=== PATIENT | female | born 1980 | race Caucasian/White ===

== ENCOUNTER 2017-01-04 10:32 | Emergency (ER) | payer BC ==
[2017-01-04] MEDS ORDERED: diPHENhydraMINE IV* 50 MG/ML 1 ml VIAL (BENADRYL) IV ONE (10:46)
[2017-01-04] MEDS ORDERED: methylPREDNISolone 125 MG* 2 ML VIAL IV ONE (10:47)
[2017-01-04] MEDS ORDERED: Ranitidine INJ(*) 25 MG/ML 2 ML VIAL IVPB ONE (10:55)
[2017-01-04 11:18] LABS: Hematocrit 40 % (35-47); Hemoglobin 13.3 g/dl (12.0-16.0); Mean Corpuscular HGB Conc 33 g/dl (31-36); Mean Corpuscular Hemoglobin 26 pg (27-31); Mean Corpuscular Volume 79 fL (80-97); Mean Platelet Volume 9 um3 (7.4-10.4); Red Blood Count 5.05 10^6/ul (4.0-5.4); Red Cell Distribution Width 14 % (10.5-15); White Blood Count 7.1 10^3/ul (3.5-10.8)
[2017-01-04 11:33] LABS: Albumin 4.3 g/dL (3.2-5.2); BUN/Creatinine Ratio 15.1 (8-20); Calcium 9.5 mg/dL (8.6-10.3); EGFR African American 115.4 (>60); EGFR Non-African American 89.7 (>60); Globulin 3.2 g/dL (2-4); Potassium 3.6 mmol/L (3.5-5.0); Total Bilirubin 0.5 mg/dL (0.2-1.0); Total Protein 7.5 g/dL (6.4-8.9)
[2017-01-04] MEDS ORDERED: Famotidine IV* 10 MG/ML 2 ML (20 mg) IVPB ONE (12:00)
--- NOTE | 2017-01-04 12:15 | ED ---
Allergic Reaction/Systemic - HPI Summary HPI Summary: 36f presents with allergic reaction today. She bite into a cinnamon donut and states that she felt nauseous and light headed. She admits to flush face. She also develop a tickle in her throat. She denies any difficulty swallowing, chest pain, or SOB. She has never had this reaction before. Her child have severe allergies and they see an clinical allergist. She states she doesn't believe anything was in the donut that she has not had before but she states she hasn't had nuts in a long time. She took a dose of Benadryl before she arrived. - History of Current Complaint Chief Complaint: EDAllergicReaction Time Seen by Provider: 01/04/17 10:46 Pain Intensity: 0 - Allergies/Home Medications Allergies/Adverse Reactions: Allergies Allergy/AdvReac Type Severity Reaction Status Date / Time No Known Allergies Allergy Verified 01/04/17 10:41 PMH/Surg Hx/FS Hx/Imm Hx Endocrine/Hematology History: Denies: Hx Anticoagulant Therapy Cardiovascular History: Denies: Hx Hypertension Musculoskeletal History: Denies: Hx Rheumatoid Arthritis - some issues, auto immune problems Infectious Disease History: No Infectious Disease History: Denies: Traveled Outside the [place] in Last 30 Days - Family History Known Family History: Positive: Other - allergies - Social History Alcohol Use: None Substance Use Type: Reports: None Smoking Status (MU): Never Smoked Tobacco Review of Systems Negative: Fever Positive: Sore Throat Negative: Chest Pain Negative: Shortness Of Breath Positive: Rash - facial flush All Other Systems Reviewed And Are Negative: Yes Physical Exam Triage Information Reviewed: Yes Vital Signs On Initial Exam: Initial Vitals Temp Pulse Resp BP Pulse Ox 98.7 F 119 20 137/75 100 01/04/17 10:35 01/04/17 10:35 01/04/17 10:35 01/04/17 10:35 01/04/17 10:35 Vital Signs Reviewed: Yes Appearance: Positive: Well-Appearing Skin: Positive: Other - face is flushed Head/Face: Positive: Normal Head/Face Inspection Eyes: Positive: Normal, Conjunctiva Clear ENT: Positive: Normal ENT inspection, Pharynx normal, TMs normal Respiratory/Lung Sounds: Positive: Clear to Auscultation, Breath Sounds Present Cardiovascular: Positive: Normal, RRR Diagnostics - Vital Signs Vital Signs Temp Pulse Resp BP Pulse Ox 01/04/17 10:52 98.7 F 104 20 149/73 100 01/04/17 10:35 98.7 F 119 20 137/75 100 - Laboratory Lab Results: Lab Results 01/04/17 01/04/17 Range/Units 11:08 11:08 WBC 7.1 (3.5-10.8) 10^3/ul RBC 5.05 (4.0-5.4) 10^6/ul Hgb 13.3 (12.0-16.0) g/dl Hct 40 (35-47) % MCV 79 L (80-97) fL MCH 26 L (27-31) pg MCHC 33 (31-36) g/dl RDW 14 (10.5-15) % Plt Count 202 (150-450) 10^3/ul MPV 9 (7.4-10.4) um3 Neut % (Auto) 82.0 (38-83) % Lymph % (Auto) 12.2 L (25-47) % [place] % (Auto) 4.1 (1-9) % Eos % (Auto) 0.2 (0-6) % Baso % (Auto) 1.5 (0-2) % Absolute Neuts (auto) 5.8 (1.5-7.7) 10^3/ul Absolute Lymphs (auto) 0.9 L (1.0-4.8) 10^3/ul Absolute Monos (auto) 0.3 (0-0.8) 10^3/ul Absolute Eos (auto) 0 (0-0.6) 10^3/ul Absolute Basos (auto) 0.1 (0-0.2) 10^3/ul Absolute Nucleated RBC 0 10^3/ul Nucleated RBC % 0 Sodium 134 (133-145) mmol/L Potassium 3.6 (3.5-5.0) mmol/L Chloride 105 (101-111) mmol/L Carbon Dioxide 24 (22-32) mmol/L Anion Gap 5 (2-11) mmol/L BUN 11 (6-24) mg/dL Creatinine 0.73 (0.51-0.95) mg/dL Est GFR ( Amer) 115.4 (>60) Est GFR (Non-Af Amer) 89.7 (>60) BUN/Creatinine Ratio 15.1 (8-20) Glucose 116 H (70-100) mg/dL Calcium 9.5 (8.6-10.3) mg/dL Total Bilirubin 0.50 (0.2-1.0) mg/dL AST 19 (13-39) U/L ALT 21 (7-52) U/L Alkaline Phosphatase 48 (34-104) U/L Total Protein 7.5 (6.4-8.9) g/dL Albumin 4.3 (3.2-5.2) g/dL Globulin 3.2 (2-4) g/dL Albumin/Globulin Ratio 1.3 (1-3) Result Diagrams: 01/04/17 11:08 01/04/17 11:08 Lab Statement: Any lab studies that have been ordered have been reviewed, and results considered in the medical decision making process. Allergic Reaction Course/Dx - Course Course Of Treatment: 36F presents wtih potenital allergic raction today s/p eating part of a donut. she states symptoms seem to come and go with facial flushing, tickle in throat, and nausea. gave another dose of benadryl and prednisone and patient symptoms resolved. labs normal. patient understands and agrees with plan - Diagnoses Differential Diagnosis/HQI/PQRI: Positive: Anaphylaxis, Local Allergic Reaction , Urticaria Provider Diagnoses: Allergic reaction Discharge - Discharge Plan Condition: Good Disposition: HOME Prescriptions: predniSONE TAB* [Deltasone TAB*] 40 mg PO DAILY #8 tab Patient Education Materials: Food Allergy (ED) Referrals: Valentin Lisa MD [Primary Care Provider] - Additional Instructions: Take Benadryl every 6 hours for 2 days Take steroid once a day for 4 more days, starting tomorrow Return to ED if develop SOB, difficulty swallowing or any new or worsening symptoms
[2017-01-04 12:46] VITALS: BP 109/52
== END 2017-01-04 12:46 | disposition home or self-care (01) ==
LOC: ED 10:32
DX: T78.40XA Allergy, unspecified, initial encounter (principal); X58.XXXA Exposure to other specified factors, initial encounter; R11.0 Nausea; R42 Dizziness and giddiness; J02.9 Acute pharyngitis, unspecified; R21 Rash and other nonspecific skin eruption
CPT/HCPCS: 36415; 80053; 85025; 99283; J1200; J2930

== ENCOUNTER 2017-01-24 12:57 | Emergency (ER) | payer BC ==
[2017-01-24] MEDS ORDERED: hydrOXYzine HCL TAB* 50 MG PO ONE (13:02)
[2017-01-24] MEDS ORDERED: methylPREDNISolone 125 MG* 2 ML VIAL IV ONE (14:07)
[2017-01-24] MEDS ORDERED: Famotidine IV* 10 MG/ML 2 ML (20 mg) IV SLOW PU ONE (14:07)
[2017-01-24 16:21] VITALS: BP 109/62
--- NOTE | 2017-01-25 08:17 | ED ---
David Bhakta Benjamin, scribed for Donnie Barreto MD on 01/24/17 at 1605 . Allergic Reaction/Systemic - HPI Summary HPI Summary: 36yo female BIB EMS for an allergic reaction. Pt is allergic to peanuts and today, pt smelled peanuts at school. Pt reported N/V, chest tightness and throat tightening. Pt received epi pen by a school nurse and got prednisone, solumedrol, and benadyrl by EMT. - History of Current Complaint Chief Complaint: EDAllergicReaction Time Seen by Provider: 01/24/17 13:01 Hx Obtained From: Patient Onset/Duration: Sudden Onset, Resolved Timing: Constant Severity Initially: Mild Severity Currently: Mild Pain Intensity: 0 Aggravating Factor(s): Nothing Alleviating Factor(s): Antihistamines, Epinephrine Associated Signs And Symptoms: Positive: Throat Tightening - Allergies/Home Medications Allergies/Adverse Reactions: Allergies Allergy/AdvReac Type Severity Reaction Status Date / Time Peanut Oil Allergy Nausea And Verified 01/24/17 13:35 Vomiting Peanut-containing Drug Allergy Nausea And Verified 01/24/17 13:35 Products Vomiting PMH/Surg Hx/FS Hx/Imm Hx Endocrine/Hematology History: Denies: Hx Anticoagulant Therapy Cardiovascular History: Denies: Hx Hypertension Musculoskeletal History: Denies: Hx Rheumatoid Arthritis - some issues, auto immune problems Infectious Disease History: No Infectious Disease History: Denies: Traveled Outside the [place] in Last 30 Days - Family History Known Family History: Positive: Other - allergies - Social History Occupation: Employed Full-time Lives: With Family Alcohol Use: None Substance Use Type: Reports: None Smoking Status (MU): Never Smoked Tobacco Review of Systems Constitutional: Negative Eyes: Negative ENT: Other - throat tightening Positive: Other - chest tightness Respiratory: Negative Positive: Vomiting, Nausea Genitourinary: Negative Musculoskeletal: Negative Skin: Negative Neurological: Negative Positive: Anxious All Other Systems Reviewed And Are Negative: Yes Physical Exam Triage Information Reviewed: Yes Vital Signs On Initial Exam: Initial Vitals Temp Pulse Resp BP Pulse Ox 98.6 F 102 18 134/71 99 01/24/17 13:30 01/24/17 13:30 01/24/17 13:30 01/24/17 13:30 01/24/17 13:30 Vital Signs Reviewed: Yes Appearance: Positive: Well-Appearing, No Pain Distress, Well-Nourished Skin: Positive: Warm, Skin Color Reflects Adequate Perfusion, Dry Head/Face: Positive: Normal Head/Face Inspection Eyes: Positive: Normal ENT: Positive: Normal ENT inspection Neck: Positive: Supple, Nontender Respiratory/Lung Sounds: Positive: Clear to Auscultation, Breath Sounds Present Cardiovascular: Positive: RRR Abdomen Description: Positive: Nontender, Soft Bowel Sounds: Positive: Present Musculoskeletal: Positive: Normal Neurological: Positive: Normal Psychiatric: Positive: Anxious - [place] Coma Scale Coma Scale Total: 15 Diagnostics - Vital Signs Vital Signs Temp Pulse Resp BP Pulse Ox 01/24/17 14:31 101 16 114/58 97 01/24/17 13:30 98.6 F 102 18 134/71 99 - Laboratory Lab Statement: Any lab studies that have been ordered have been reviewed, and results considered in the medical decision making process. Re-Evaluation - Re-Evaluation First Eval Re-Evaluation Time: 16:04 Change: Improved Allergic Reaction Course/Dx - Course Course Of Treatment: Ms. Guadarrama had a significant reaction to the smell of peanuts while at work today. She has had similar reactions in the past. She did well here with meds and observation and remained stable although she was clearly quite anxious upon arrival. - Diagnoses Provider Diagnoses: Allergic reaction, Anxiety about health Discharge - Discharge Plan Condition: Stable Disposition: HOME Patient Education Materials: General Allergic Reaction (ED) Referrals: Valentin Lisa MD [Primary Care Provider] - The documentation as recorded by the David merritt Benjamin accurately reflects the service I personally performed and the decisions made by me, Donnie Barreto MD.
== END 2017-01-24 16:20 | disposition home or self-care (01) ==
LOC: ED 12:57
DX: T78.40XA Allergy, unspecified, initial encounter (principal); R11.2 Nausea with vomiting, unspecified; F41.9 Anxiety disorder, unspecified; X58.XXXA Exposure to other specified factors, initial encounter
CPT/HCPCS: 96374; 96375; 99282; A9270-GY; J2930

== ENCOUNTER 2018-01-26 10:08 | Emergency (ER) | payer BC ==
[2018-01-26 10:56] LABS: ABS Basophils 0.1 10^3/ul (0-0.2); ABS Eosinophils 0.1 10^3/ul (0-0.6); ABS Lymphocytes 1.1 10^3/ul (1.0-4.8); ABS Monocytes 0.4 10^3/ul (0-0.8); ABS Neutrophils 2.5 10^3/ul (1.5-7.7); ABS Nucleated RBC 0 10^3/ul; Eosinophil % 2.5 % (0-6); Hematocrit 40 % (35-47); Hemoglobin 13.3 g/dl (12.0-16.0); Lymphocyte % 26.7 % (25-47); Mean Corpuscular HGB Conc 33 g/dl (31-36); Mean Corpuscular Hemoglobin 27 pg (27-31); Mean Corpuscular Volume 81 fL (80-97); Mean Platelet Volume 9.1 um3 (7.4-10.4); Nucleated Red Blood Cells % 0.2; Platelet Count 182 10^3/ul (150-450); Red Blood Count 5.02 10^6/ul (4.0-5.4); Red Cell Distribution Width 15 % (10.5-15); White Blood Count 4.1 10^3/ul (3.5-10.8)
--- NOTE | 2018-01-26 10:57 | RAD ---
INDICATION: Chest pain. Cough. Cold symptoms. COMPARISON: November 10, 2010 CT TECHNIQUE: Dual energy PA and routine lateral views of the chest were obtained. REPORT: Clear lungs and pleural spaces. Negative for pneumothorax. The heart, pulmonary vasculature, and mediastinal contours are unremarkable. Unremarkable osseous structures and soft tissue contours. IMPRESSION: No evidence for pneumonia. Negative exam.
[2018-01-26 11:11] LABS: EGFR Non-African American 95.2 (>60)
--- NOTE | 2018-01-26 11:12 | ED ---
HPI Chest Pain - HPI Summary HPI Summary: Patient is a 37-year-old female presenting to the ED with left chest wall pain since last week. She states that chest pain began last week on Saturday after doing yard work. She states she felt it was musculoskeletal and took some ibuprofen with relief. She states however this last week she has been experiencing intermittent left chest wall pain which continues to improve with NSAIDs, the pain returns if she does not take any medication. Massage to the area also improves her symptoms. Symptoms are aggravated with lying flat and better with leaning forward. PMH includes dermatomyositis to which the patient takes 200 mg Paquenil. She is followed by a printed circuit designer, rubber worker, ENT Dr. Akins and opthomologist. She states she had a similar episode several years ago when first being diagnosed with dermatomyositis. She was diagnosed with costochondritis as well as pleurisy. She states this feels somewhat similar. She denies any shortness of breath with her symptoms. Denies any recent travel, leg pain or smoking history. Last OCP use 4 months ago. Denies any recent viral illness, denies any headache. - History of Current Complaint Chief Complaint: EDChestPainROMI Time Seen by Provider: 01/26/18 10:24 Hx Obtained From: Patient Onset/Duration: Started Weeks Ago - 8 days Timing: Intermittent, Lasting Hours Initial Severity: Moderate Current Severity: Moderate Pain Intensity: 3 Pain Scale Used: 0-10 Numeric Chest Pain Location: Discrete at: - left anterior chest wall Chest Pain Radiates: No Character: Burning, Dull/Aching, Pressure/Squeezing Aggravating Factor(s): Recumbent Position Alleviating Factor(s): Medication - NSAIDS, Upright Position Associated Signs and Symptoms: Positive: Chest Pain. Negative: Vision Changes, Anxiety, Recent Stress, Headaches, Shortness of Breath, Lightheadedness, Diaphoresis, Palpitations, Calf Pain/Swelling, Vomiting, Wheezing, Nasal Congestion, URI - Risk Factors Pulmonary Embolism Risk Factors: Negative TAD Risk Factors: Negative - Allergy/Home Medications Allergies/Adverse Reactions: Allergies Allergy/AdvReac Type Severity Reaction Status Date / Time peanut Allergy Nausea And Verified 01/26/18 10:09 Vomiting peanut oil Allergy Nausea And Verified 01/26/18 10:09 Vomiting Home Medications: Home Medications EPINEPHrine [Epipen] 0.3 mg INJ ONCE PRN 01/26/18 [History Confirmed 01/26/18] Hydroxychloroquine TAB* [Plaquenil TAB*] 200 mg PO BID 01/26/18 [History Confirmed 01/26/18] PMH/Surg Hx/FS Hx/Imm Hx Previously Healthy: Yes Endocrine/Hematology History: Denies: Hx Anticoagulant Therapy Cardiovascular History: Denies: Hx Hypertension Musculoskeletal History: Denies: Hx Rheumatoid Arthritis - some issues, auto immune problems - Immunization History Hx Pertussis Vaccination: No Immunizations Up to Date: Unable to Obtain/Confirm Infectious Disease History: No Infectious Disease History: Denies: Traveled Outside the [place] in Last 30 Days - Family History Known Family History: Positive: Other - allergies - Social History Occupation: Employed Full-time Lives: With Family Alcohol Use: None Hx Substance Use: No Substance Use Type: Reports: None Hx Tobacco Use: No Smoking Status (MU): Never Smoked Tobacco Review of Systems Constitutional: Negative Negative: Fever, Chills, Fatigue, Skin Diaphoresis Negative: Photophobia, Blurred Vision Negative: Sore Throat, Ear Ache, Nasal Discharge Positive: Chest Pain. Negative: Palpitations Negative: Shortness Of Breath, Cough Genitourinary: Negative Positive: no symptoms reported, see HPI Positive: Myalgia - pain is somewhat reproducible Skin: Negative Negative: Headache, Weakness Psychological: Normal All Other Systems Reviewed And Are Negative: Yes Physical Exam Triage Information Reviewed: Yes Vital Signs On Initial Exam: Initial Vitals Temp Pulse Resp BP Pulse Ox 98.7 F 93 19 141/84 100 01/26/18 10:11 01/26/18 10:11 01/26/18 10:11 01/26/18 10:11 01/26/18 10:11 Completion Of Physical Exam Limited Due To: Dementia Appearance: Positive: Well-Appearing, Well-Nourished Skin: Positive: Warm, Skin Color Reflects Adequate Perfusion Head/Face: Positive: Normal Head/Face Inspection Eyes: Positive: EOMI, GERI, Conjunctiva Clear Neck: Positive: Supple, Nontender, No Lymphadenopathy Respiratory/Lung Sounds: Positive: Clear to Auscultation, Breath Sounds Present Cardiovascular: Positive: RRR - no pericardial friction rub, Pulses are Symmetrical in both Upper and Lower Extremities. Negative: IRR, Murmur, Rub, Leg Edema Left, Leg Edema Right Musculoskeletal: Positive: Normal, Strength/ROM Intact Neurological: Positive: Sensory/Motor Intact, Alert, Oriented to Person Place, Time, Speech Normal Psychiatric: Positive: Normal, Affect/Mood Appropriate AVPU Assessment: Alert Diagnostics - Vital Signs Vital Signs Temp Pulse Resp BP Pulse Ox 01/26/18 10:23 94 20 99 01/26/18 10:22 91 16 140/80 100 01/26/18 10:11 98.7 F 93 19 141/84 100 - Laboratory Lab Results: Lab Results 01/26/18 01/26/18 01/26/18 Range/Units 10:45 10:45 10:45 WBC 4.1 (3.5-10.8) 10^3/ul RBC 5.02 (4.0-5.4) 10^6/ul Hgb 13.3 (12.0-16.0) g/dl Hct 40 (35-47) % MCV 81 (80-97) fL MCH 27 (27-31) pg MCHC 33 (31-36) g/dl RDW 15 (10.5-15) % Plt Count 182 (150-450) 10^3/ul MPV 9.1 (7.4-10.4) um3 Neut % (Auto) 59.9 (38-83) % Lymph % (Auto) 26.7 (25-47) % [place] % (Auto) 9.6 H (0-7) % Eos % (Auto) 2.5 (0-6) % Baso % (Auto) 1.3 (0-2) % Absolute Neuts (auto) 2.5 (1.5-7.7) 10^3/ul Absolute Lymphs (auto) 1.1 (1.0-4.8) 10^3/ul Absolute Monos (auto) 0.4 (0-0.8) 10^3/ul Absolute Eos (auto) 0.1 (0-0.6) 10^3/ul Absolute Basos (auto) 0.1 (0-0.2) 10^3/ul Absolute Nucleated RBC 0 10^3/ul Nucleated RBC % 0.2 ESR Pending Sodium 137 L (139-145) mmol/L Potassium 3.7 (3.5-5.0) mmol/L Chloride 104 (101-111) mmol/L Carbon Dioxide 25 (22-32) mmol/L Anion Gap 8 (2-11) mmol/L BUN 11 (6-24) mg/dL Creatinine 0.69 (0.51-0.95) mg/dL Est GFR ( Amer) 122.5 (>60) Est GFR (Non-Af Amer) 95.2 (>60) BUN/Creatinine Ratio 15.9 (8-20) Glucose 100 (70-100) mg/dL Lactic Acid 0.9 (0.5-2.0) mmol/L Calcium 9.0 (8.6-10.3) mg/dL Total Bilirubin 0.60 (0.2-1.0) mg/dL AST 18 (13-39) U/L ALT 19 (7-52) U/L Alkaline Phosphatase 50 (34-104) U/L Troponin I Pending C-Reactive Protein 1.83 (< 5.00) mg/L Total Protein 6.8 (6.4-8.9) g/dL Albumin 4.2 (3.2-5.2) g/dL Globulin 2.6 (2-4) g/dL Albumin/Globulin Ratio 1.6 (1-3) Result Diagrams: 01/26/18 10:45 01/26/18 10:45 Lab Statement: Any lab studies that have been ordered have been reviewed, and results considered in the medical decision making process. Chest Pain Course/Dx - Course Course Of Treatment: During the course of treatment, the patient is evaluated for left chest wall pain. Troponin obtained. Labs are obtained and are unremarkable. Troponin 0.00. Negative inflammatory markers at CRP 1.83, ESR 7. Chest x-ray obtained and shows no acute cardiopulmonary findings. EKG normal sinus rhythm. These were reviewed by myself, Fide Torres, PAC. Lungs CTA, RRR with no pericardial friction rub. While inflammatory markers, EKG and chest x-ray are negative as well as patient is afebrile, patient continues to exhibit symptoms of a pericarditis with the position of leaning forward reducing pressure and alleviating pain. No radiation to the trapezius ridge. Pain is not worse with coughing or inspiration. PERC 's score 0 and patient is low risk for PE. I believe this to be inflammatory in nature with either costochondritis, pericarditis or pleurisy as symptoms improved with NSAIDs. All of which are maintained with similiar treatments of anti-inflammatories. I have also discussed this case with Dr. Barreto who agrees with these findings. Patient is okay to be discharged home at this time with ibuprofen 600mg 3 times daily until follow-up on Saturday with her printed circuit designer. She understands return precautions and will return for any worsening or changing symptoms or if she develops fever. - Chest Pain Differential Diagnosis/HQI/PQRI: Chest Wall - Diagnoses Provider Diagnoses: Inflammation, Chest pain Discharge - Sign-Out/Discharge Documenting (check all that apply): Discharge/Admit/Transfer - Discharge Plan Condition: Stable Disposition: HOME Patient Education Materials: Acute Pericarditis (ED) Referrals: Valentin Lisa MD [Primary Care Provider] - Additional Instructions: Given information on pericarditis - although you do not have this confirmed through EKG or chest xray Ibpurofen 600mg three times daily Follow up with your printed circuit designer as scheduled on saturday - Billing Disposition and Condition Condition: STABLE Disposition: HOME
[2018-01-26 12:22] VITALS: BP 115/69
== END 2018-01-26 12:23 | disposition home or self-care (01) ==
LOC: ED 10:08
DX: R07.9 Chest pain, unspecified (principal); J98.8 Other specified respiratory disorders
CPT/HCPCS: 36415; 71046; 80053; 82550; 82553; 83605; 84484; 85025; 85652; 86140; 93005; 99282

== ENCOUNTER 2019-06-27 11:38 | Emergency (ER) | payer BC ==
[2019-06-27] MEDS ORDERED: Ondansetron INJ* 2 MG/ML VIAL IV ONE (12:13)
[2019-06-27] MEDS ORDERED: Morphine 4 MG/ML VIAL (1 ml) 4 MG/ML VIAL IV ONE (12:13)
--- NOTE | 2019-06-27 12:19 | ED ---
Back Pain - HPI Summary HPI Summary: Patient presents with abrupt onset right back pain. This is wrapped around to her right lower quadrant and is tender to touch here. She cannot find any position to get comfortable in. Reports this started after having a bowel movement earlier today - denies straining. Denies numbness, tingling, weakness into leg however she does have a history of "sciatica" on this side. Typically presents as pain focal to the right SI region - today she felt burning in this area and beyond as mentioned above. Denies urinary or bowel retention/ incontinence, fever, chills, chest pain, urinary frequency or urgency, hematuria , dysuria, vaginal symptoms, history of ovarian cyst. She has had 4 children, all vaginal deliveries without complication. notes she had back labor with all of her children and this feels similar. 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 She takes Plaquenil daily and follows w/ Dr. Blackwood. No history of injury or herniated disc in this area. No recent trauma or injury. - History of Current Complaint Chief Complaint: EDFlankPain Stated Complaint: SEVERE ABDOMINAL PAIN PER PT Time Seen by Provider: 06/27/19 11:58 Hx Obtained From: Patient, Family/Council Member - Pain Intensity: 10 - Allergies/Home Medications Allergies/Adverse Reactions: Allergies Allergy/AdvReac Type Severity Reaction Status Date / Time peanut Allergy Nausea And Verified 06/27/19 11:43 Vomiting peanut oil Allergy Nausea And Verified 06/27/19 11:43 Vomiting PMH/Surg Hx/FS Hx/Imm Hx Previously Healthy: Yes Endocrine/Hematology History: Denies: Hx Anticoagulant Therapy, Hx Diabetes Cardiovascular History: Denies: Hx Hypertension, Hx Pacemaker/ICD GI History: Denies: Hx Cirrhosis, Hx Crohn's Disease, Hx Diverticulosis, Hx Gall Bladder Disease, Hx Gastroesophageal Reflux Disease, Hx Gastrointestinal Bleed, Hx Hiatal Hernia, Hx Irritable Bowel, Hx Obstructive Bowel, Hx Ulcer, Hx Urosepsis History: Denies: Hx Acute Renal Failure, Hx Chronic Renal Failure, Hx Kidney Infection , Hx Kidney Stones, Hx Renal Disease Musculoskeletal History: Reports: Other Musculoskeletal History - dermatomyositis, 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 Denies: Hx Rheumatoid Arthritis - some issues, auto immune problems Sensory History: Denies: Hx Hearing Aid Psychiatric History: Denies: Hx Panic Disorder, Hx Substance Abuse Infectious Disease History: No Infectious Disease History: Denies: Traveled Outside the [place] in Last 30 Days - Family History Known Family History: Positive: Other - allergies - Social History Lives: With Family - and children Alcohol Use: None Hx Substance Use: No Substance Use Type: Reports: None Hx Tobacco Use: No Smoking Status (MU): Never Smoked Tobacco Review of Systems Constitutional: Negative Cardiovascular: Negative Respiratory: Negative Positive: Abdominal Pain. Negative: Vomiting, Diarrhea, Nausea Positive: see HPI, flank pain. Negative: burning, dysuria, discharge, frequency , hematuria, incontinence, pain, urgency Musculoskeletal: Other - Rt lower back pain Negative: Decreased ROM, Edema Skin: Negative Neurological: Negative Psychological: Normal All Other Systems Reviewed And Are Negative: Yes Physical Exam Triage Information Reviewed: Yes Vital Signs On Initial Exam: Initial Vitals Temp Pulse Resp BP Pulse Ox 97.8 F 98 18 124/82 100 06/27/19 11:40 06/27/19 11:40 06/27/19 11:40 06/27/19 11:40 06/27/19 11:40 Vital Signs Reviewed: Yes Appearance: Positive: Well-Nourished, Pain Distress - pt lyin sideways on stretcher, shivering in pain Skin: Positive: Warm, Skin Color Reflects Adequate Perfusion, Dry Head/Face: Positive: Normal Head/Face Inspection Eyes: Positive: Normal, EOMI, GERI ENT: Positive: Hearing grossly normal, Pharynx normal - mucosa moist Respiratory/Lung Sounds: Positive: Clear to Auscultation, Breath Sounds Present. Negative: Rales, Rhonchi, Wheezes Cardiovascular: Positive: Normal, RRR, Pulses are Symmetrical in both Upper and Lower Extremities, S1, S2. Negative: Leg Edema Left, Leg Edema Right Abdomen Description: Positive: Soft Pelvic Exam: Positive: Other - deferred Musculoskeletal: Positive: Strength/ROM Intact Neurological: Positive: Normal, Sensory/Motor Intact, Alert, Oriented to Person Place, Time, CN Intact II-III Psychiatric: Positive: Normal - [address] Coma Scale Best Eye Response: 4 - Spontaneous Best Motor Response: 6 - Obeys Commands Best Verbal Response: 5 - Oriented Coma Scale Total: 15 Procedures - Sedation Patient Received Moderate/Deep Sedation with Procedure: No Diagnostics - Vital Signs Vital Signs Temp Pulse Resp BP Pulse Ox 06/27/19 11:40 97.8 F 98 18 124/82 100 - Laboratory Result Diagrams: 06/27/19 12:23 06/27/19 12:23 Lab Statement: Any lab studies that have been ordered have been reviewed, and results considered in the medical decision making process. Re-Evaluation - Re-Evaluation First Eval Change: Improved - s/p morphine Second Eval Change: Worse - s/p TVUS - ordered toradol which helped Back Pain Course/Dx - Course Course Of Treatment: Pt here w/ acute right sided back pain that wrapped around her hip and into her groin prior to arrival. She reports his pain as being significant such as labor pain. She eventually got herself comfortable even prior to pain medication while here however still had residual pain and morphine helped with that. Upon evaluation of CT, she was not found to have any displaced joints, disc protrusions or fractures however she was found to have a large dermoid ovarian cyst on the right side measuring 7.9 x 4.8 x 6.6 cm and free fluid in the adnexal space. No previous history of known ovarian cysts, fibroids, endometriosis and patient reports she's checked by [facility] every 2 years without abnormal findings. She is due for an updated well woman exam with Pap. No family history of known cancers or abnormality other than a sister with an ovarian cyst one time in her youth. Patient found even more relief with Toradol and was able to ambulate without difficulty. She'll be discharged with diagnosis of large right dermoid ovarian cyst and advised to follow-up with [facility] this week. She may take NSAIDs and additional pain medication for control. Review danger signs and symptoms of when to return to the emergency department. Patient and agree with plan. Note: Labs reviewed and are not significant for infection or gross muscle damage. She was also not found to be . Patient aware of results. - Diagnoses Provider Diagnoses: Dermoid cyst of right ovary Discharge ED - Sign-Out/Discharge Documenting (check all that apply): Patient Departure - Discharge Plan Condition: Stable Disposition: HOME Prescriptions: oxyCODONE/Acetamin 5/325 MG* [Percocet 5/325 TAB*] 1 tab PO Q6H PRN #15 tab MDD 4 PRN Reason: Pain - Severe Patient Education Materials: Ovarian Cyst (ED), Ruptured Ovarian Cyst (ED) Referrals: Heath Duong MD [Medical Doctor] - Additional Instructions: Apply warm castor oil compress to abdomen/pelvis, take Aleve 500 mg every 12 hours or ibuprofen 800 mg every 8 hours for pain and swelling, stay hydrated, pelvic rest until seen by [facility] this week. Call Saturday to schedule an appointment. Additionally, you've been given stronger pain medication in the event they need this. Take as directed. If in the meantime you develop intractable pain, fever, chills, hard belly, difficulty urinating or moving bowels, heavy vaginal discharge, numbness/ tingling/weakness of her lower extremities, return to the emergency department. - Billing Disposition and Condition Condition: STABLE Disposition: Home
[2019-06-27 12:31] LABS: ABS Basophils 0.1 10^3/ul (0-0.2); ABS Eosinophils 0.1 10^3/ul (0-0.6); ABS Monocytes 0.3 10^3/ul (0-0.8); ABS Neutrophils 2.4 10^3/ul (1.5-7.7); Eosinophil % 1.7 %; Hematocrit 41 % (35-47); Hemoglobin 13.7 g/dL (12.0-16.0); Mean Corpuscular HGB Conc 33 g/dL (31-36); Mean Corpuscular Hemoglobin 26 pg (27-31); Mean Corpuscular Volume 80 fL (80-97); Mean Platelet Volume 9.3 fL (7.4-10.4); Platelet Count 173 10^3/uL (150-450); Red Blood Count 5.17 10^6 /uL (3.70-4.87); Red Cell Distribution Width 14 % (10-15); White Blood Count 3.9 10^3/uL (3.5-10.8)
[2019-06-27 12:48] LABS: ALT 12 U/L (7-52); AST 16 U/L (13-39); Albumin 4.3 g/dL (3.2-5.2); Albumin/Globulin Ratio 1.5 (1-3); Alkaline Phosphatase 60 U/L (34-104); Anion Gap 7 mmol/L (2-11); BUN/Creatinine Ratio 14.5 (8-20); Blood Urea Nitrogen 10 mg/dL (6-24); C Reactive Protein 1.88 mg/L (<8.01); CO2 Carbon Dioxide 23 mmol/L (22-32); Calcium 9.3 mg/dL (8.6-10.3); Chloride 106 mmol/L (101-111); Creatine Kinase 188 U/L (10-223); EGFR African American 114.6 (>60); EGFR Non-African American 94.7 (>60); Globulin 2.8 g/dL (2-4); Glucose 125 mg/dL (70-100); Sodium 136 mmol/L (135-145); Total Protein 7.1 g/dL (6.4-8.9)
[2019-06-27 12:54] LABS: HCG Pregnancy < 0.60 mIU/mL
[2019-06-27 13:34] LABS: Erythrocyte Sed Rate 2 mm/Hr (0-19)
[2019-06-27] MEDS ORDERED: Ketorolac INJ* 30 MG/ML 1 ML VIAL IV ONE (14:24)
[2019-06-27 14:36] VITALS: BP 105/55
== END 2019-06-27 16:38 | disposition home or self-care (01) ==
LOC: ED 11:38
DX: D27.0 Benign neoplasm of right ovary (principal); D27.1 Benign neoplasm of left ovary; N20.0 Calculus of kidney; M54.5 Low back pain; Z32.02 Encounter for pregnancy test, result negative; M33.10 Other dermatomyositis, organ involvement unspecified; M94.0 Chondrocostal junction syndrome [Tietze]; Z91.010 Allergy to peanuts
CPT/HCPCS: 36415; 72131; 72192; 76830; 80053; 82550; 83605; 84702; 85025; 85652; 86140; 96374; 96375; 99282; J1885; J2270; J2405

== ENCOUNTER 2019-06-28 16:17 | Observation (INO) | payer BC ==
[2019-06-28] MEDS ORDERED: HYDROmorphone INJ1* 1 MG/ML SYRINGE ONE ×2 (17:23→17:30)
[2019-06-28] MEDS ORDERED: Ondansetron INJ* 2 MG/ML VIAL ONE ×2 (17:23→21:36)
[2019-06-28] MEDS ORDERED: Morphine 4 MG/ML VIAL (1 ml) 4 MG/ML VIAL IV ONE ×2 (17:25→19:53)
[2019-06-28] MEDS ORDERED: NS 0.9% 1000 ML** 1,000 ML IV ONE (17:25)
[2019-06-28] MEDS ORDERED: Ondansetron INJ* 2 MG/ML VIAL IV ONE (17:25)
[2019-06-28] MEDS ORDERED: HYDROmorphone INJ* 0.5 MG/0.5 ML SYRINGE IV ONE (17:28)
[2019-06-28] MEDS ORDERED: HYDROmorphone INJ1* 1 MG/ML SYRINGE IV ONE (17:28)
--- NOTE | 2019-06-28 17:32 | ED ---
Abdominal Pain/Female - HPI Summary HPI Summary: 38 year old F [place] [facility] [place] by boyfriend complains of acute onset severe RLQ pain rated 10/10 in severity since approximately 15:30 today. States she had abdominal pain yesterday, and was seen in the ED, dx bilateral dermoid ovarian cysts. States she took Motrin at approximately 14:30 today. States she was due for a dose of oxydocone at 15:00 today. States she had sudden onset severe 10/10 right sided pain around 15:30 and came to ER. No nausea/vomiting. No other sx. Symptoms aggravated by nothing. Symptoms alleviated by nothing. - History of Current Complaint Chief Complaint: EDAbdPain Stated Complaint: ABD PAIN Time Seen by Provider: 06/28/19 17:13 Hx Obtained From: Patient Onset/Duration: Sudden Onset, Lasting Hours, Still Present Timing: Constant Severity Currently: Severe Pain Intensity: 10 Pain Scale Used: 0-10 Numeric Location: Discrete At: RLQ Aggravating Factor(s): Nothing Alleviating Factor(s): Nothing Associated Signs and Symptoms: Positive: Negative Allergies/Adverse Reactions: Allergies Allergy/AdvReac Type Severity Reaction Status Date / Time peanut Allergy Nausea And Verified 06/27/19 11:43 Vomiting peanut oil Allergy Nausea And Verified 06/27/19 11:43 Vomiting PMH/Surg Hx/FS Hx/Imm Hx Endocrine/Hematology History: Denies: Hx Anticoagulant Therapy, Hx Diabetes Cardiovascular History: Denies: Hx Hypertension, Hx Pacemaker/ICD GI History: Denies: Hx Cirrhosis, Hx Crohn's Disease, Hx Diverticulosis, Hx Gall Bladder Disease, Hx Gastroesophageal Reflux Disease, Hx Gastrointestinal Bleed, Hx Hiatal Hernia, Hx Irritable Bowel, Hx Obstructive Bowel, Hx Ulcer, Hx Urosepsis History: Denies: Hx Acute Renal Failure, Hx Chronic Renal Failure, Hx Kidney Infection , Hx Kidney Stones, Hx Renal Disease Musculoskeletal History: Reports: Other Musculoskeletal History - dermatomyositis, 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 Denies: Hx Rheumatoid Arthritis - some issues, auto immune problems Sensory History: Denies: Hx Hearing Aid Psychiatric History: Denies: Hx Panic Disorder, Hx Substance Abuse Infectious Disease History: No Infectious Disease History: Denies: Traveled Outside the [place] in Last 30 Days - Family History Known Family History: Positive: Other - allergies - Social History Alcohol Use: None Hx Substance Use: No Substance Use Type: Reports: None Hx Tobacco Use: No Smoking Status (MU): Never Smoked Tobacco Review of Systems Negative: Fever Positive: Other - RLQ pain. Negative: Vomiting, Nausea All Other Systems Reviewed And Are Negative: Yes Physical Exam - Summary Physical Exam Summary: Constitutional: Well-developed, Well-nourished, Alert. In moderate distress secondary to pain Skin: Warm, Dry HENT: Normocephalic; Atraumatic Eyes: Conjunctiva normal Neck: Musculoskeletal ROM normal neck. (-) JVD, (-) Stridor, (-) Nuchal rigidity Cardio: Rhythm regular, rate normal, Heart sounds normal; Intact distal pulses; Radial pulses are 2+ and symmetric. (-) Murmur Pulmonary/Chest wall: Effort normal. (-) Respiratory distress, (-) Wheezes, (-) Rales Abd: Soft, (-) Distension, (-) Rebound, guarding with RLQ tenderness Musculoskeletal: (-) Edema Lymph: (-) Cervical adenopathy Neuro: Alert, Oriented x3 Psych: Mood and affect Normal Triage Information Reviewed: Yes Vital Signs On Initial Exam: Initial Vitals Temp Pulse Resp BP Pulse Ox 98.3 F 95 18 111/64 98 06/28/19 16:28 06/28/19 16:28 06/28/19 16:28 06/28/19 16:28 06/28/19 16:28 Vital Signs Reviewed: Yes Procedures - Sedation Patient Received Moderate/Deep Sedation with Procedure: No Diagnostics - Vital Signs Vital Signs Temp Pulse Resp BP Pulse Ox 06/28/19 16:28 98.3 F 95 18 111/64 98 - Laboratory Result Diagrams: 06/28/19 17:43 06/28/19 17:43 Lab Statement: Any lab studies that have been ordered have been reviewed, and results considered in the medical decision making process. - Ultrasound Transvaginal Ultrasound Interpretation Completed By: Radiologist Summary of Ultrasound Findings: 1. In the context of severe patient pain and diminutive right adnexal waveforms, there is concern for ovarian torsion versus torsion/detortion with the known dermoid cyst acting as a lead point. Surgical consultation is recommended. If required, more detailed imaging could be obtained after the patient's pain is controlled. These findings were discussed with Dr. Barreto at 5:13 PM on June 28, 2019. ED physician has reviewed this report. Re-Evaluation - Re-Evaluation First Eval Re-Evaluation Time: 17:15 Change: Unchanged Comment: Dr. Barreto reports he spoke with Dr. Gutierrez, radiology, who states patient has ovarian torsion Second Eval Re-Evaluation Time: 19:26 Change: Unchanged Comment: patient to OR for ovarian torsion Abdominal Pain Fem Course/Dx - Course Course Of Treatment: 38 y/o F w known dermoid cysts p/w severe RLQ pain. - concern for torsion, US ordered in waiting room. - Dr. Gutierrez called w concern for torsion, patient having severe RLQ pain on exam w guarding. Given dilaudid 1 mg for pain, zofran for nausea. - [facility] (Dr. Duong) consulted and will come see patient - Diagnoses Provider Diagnoses: Ovarian torsion - Provider Notifications Discussed Care Of Patient With: Heath Duogn Time Discussed With Above Provider: 17:31 Instructed by Provider To: Other - Dr. Duong, [employer], agrees to come see patient in ED. Discharge ED - Sign-Out/Discharge Documenting (check all that apply): Patient Departure - Admit - Discharge Plan Condition: Stable Disposition: ADMITTED TO [facility] - Billing Disposition and Condition Condition: STABLE Disposition: Admitted to [facility] - Attestation Statements Document Initiated by Namibe: Yes Documenting Scribe: Johnna Lugo Provider For Whom Chana is Documenting (Include Credential): Tyson Escobar MD Scribe Attestation: I, Johnna Lugo, scribed for Tyson Escobar MD on 06/28/19 at 2214. Scribe Documentation Reviewed: Yes Provider Attestation: The documentation as recorded by the scribe, Johnna Lugo accurately reflects the service I personally performed and the decisions made by me, Tyson Escobar MD Status of Scribe Document: Viewed
[2019-06-28 17:49] LABS: ABS Basophils 0.1 10^3/ul (0-0.2); ABS Lymphocytes 0.9 10^3/ul (1.0-4.8); ABS Monocytes 0.5 10^3/ul (0-0.8); Eosinophil % 0.6 %; Hematocrit 39 % (35-47); Hemoglobin 12.6 g/dL (12.0-16.0); Lymphocyte % 11.9 %; Mean Corpuscular HGB Conc 33 g/dL (31-36); Mean Corpuscular Hemoglobin 26 pg (27-31); Mean Corpuscular Volume 81 fL (80-97); Mean Platelet Volume 9.2 fL (7.4-10.4); Nucleated Red Blood Cells % 0.1; Platelet Count 173 10^3/uL (150-450); Red Blood Count 4.82 10^6 /uL (3.70-4.87); Red Cell Distribution Width 15 % (10-15); White Blood Count 7.5 10^3/uL (3.5-10.8)
[2019-06-28] MEDS ORDERED: HYDROmorphone INJ1* 1 MG/ML SYRINGE IV SLOW PU ONE (17:54)
[2019-06-28 18:07] LABS: Albumin/Globulin Ratio 1.5 (1-3); BUN/Creatinine Ratio 19.2 (8-20); Calcium 9.2 mg/dL (8.6-10.3); EGFR African American 107.4 (>60); EGFR Non-African American 88.8 (>60); Globulin 2.7 g/dL (2-4); Potassium 3.6 mmol/L (3.5-5.0); Total Bilirubin 0.7 mg/dL (0.2-1.0); Total Protein 6.7 g/dL (6.4-8.9)
[2019-06-28] MEDS ORDERED: HYDROmorphone INJ* 0.5 MG/0.5 ML SYRINGE IV SLOW PU ONE (18:18)
[2019-06-28] MEDS ORDERED: Bupivacaine 0.25% SDV PF* 10 ML VIAL INJ ONE (20:38)
[2019-06-28] MEDS ORDERED: fentaNYL* 50 MCG/ML 2 ML VIAL (100 MCG VIAL) ONE ×2 (20:41→21:27)
[2019-06-28] MEDS ORDERED: Midazolam* 1 MG/ML 5 ML VIAL (5 MG) ONE (20:41)
[2019-06-28] MEDS ORDERED: ceFOXitin 2 GM IVPREMIX* 2 GM/50 ML BAG ONE (20:44)
[2019-06-28] MEDS ORDERED: Rocuronium* 10 MG/ML VIAL ONE (21:26)
[2019-06-28] MEDS ORDERED: Lidocaine 2% PF * 5 ML VIAL ONE (21:36)
[2019-06-28] MEDS ORDERED: Dexamethasone IV* 4 MG/ML 1 ML (4 MG) ONE (21:36)
[2019-06-28] MEDS ORDERED: Propofol* 10 MG/ML 20 ML BTL ONE ×2 (21:36→22:47)
[2019-06-28] MEDS ORDERED: Succinylcholine* 20 MG/ML 10 ML VIAL ONE (21:36)
[2019-06-28] MEDS ORDERED: Ketorolac INJ* 30 MG/ML 1 ML VIAL ONE (21:36)
[2019-06-28] MEDS ORDERED: DiMENhydriNATE IV* 50 MG/ML VIAL ONE (21:36)
[2019-06-28] MEDS ORDERED: Acetaminophen IV 1GM/100ML * 1,000 MG/100 ML VIAL IVPB ONE (22:17)
[2019-06-28] MEDS ORDERED: Naloxone* 0.4 MG/ML 1 ML VIAL IV PRN (22:17)
[2019-06-28] MEDS ORDERED: HYDROmorphone INJ1* 1 MG/ML SYRINGE IV PRN (22:27)
[2019-06-28] MEDS ORDERED: DiMENhydriNATE IV* 50 MG/ML VIAL IV PUSH PRN (22:27)
[2019-06-28] MEDS ORDERED: oxyCODONE/Acetamin 5/325 MG* TAB PO PRN (23:27)
[2019-06-28] MEDS ORDERED: Ketorolac INJ* 30 MG/ML 1 ML VIAL IV PRN (23:27)
[2019-06-28] MEDS ORDERED: Acetaminophen IV 1GM/100ML * 100 ML ONE (23:37)
[2019-06-29] MEDS: Lactated Ringers 1000 ML Bag* 1,000 ML IV SCH ×2 (00:35→09:22)
[2019-06-29 06:49] LABS: ABS Lymphocytes 0.7 10^3/ul (1.0-4.8); ABS Monocytes 0.7 10^3/ul (0-0.8); ABS Neutrophils 12.1 10^3/ul (1.5-7.7); Hematocrit 38 % (35-47); Hemoglobin 12.3 g/dL (12.0-16.0); Lymphocyte % 5.3 %; Mean Corpuscular HGB Conc 33 g/dL (31-36); Mean Corpuscular Hemoglobin 26 pg (27-31); Mean Corpuscular Volume 81 fL (80-97); Mean Platelet Volume 10.1 fL (7.4-10.4); Platelet Count 165 10^3/uL (150-450); Red Blood Count 4.66 10^6 /uL (3.70-4.87); Red Cell Distribution Width 15 % (10-15); White Blood Count 13.5 10^3/uL (3.5-10.8)
[2019-06-29] MEDS ORDERED: oxyCODONE/Acetamin 5/325 MG* TAB PO PRN (07:50)
[2019-06-29] MEDS: oxyCODONE/Acetamin 5/325 MG* TAB PO PRN ×3 (08:03→21:38)
[2019-06-29] MEDS ORDERED: Influenza VAC *QUAD* 2019-20* 0.5 ML SYRINGE IM ONE (09:00)
[2019-06-29] MEDS: Ketorolac INJ* 30 MG/ML 1 ML VIAL IV PRN ×2 (11:59→17:57)
--- NOTE | 2019-06-29 19:16 | PN ---
Progress Note - Progress Note Date of Service: 06/29/19 SOAP: Subjective: Pt is POD#1 s/p minilap with bilat ovarian cystectomy just before midnight, presented with acute pain from torsion. Pt has progressed gradually today with increasing ambulation, but still requiring assistance getting to restroom. Atkinson removed, voiding. Tolerated regular diet. Pain well controlled with Toradol and percocet prn. Objective: Vital Signs Temp Pulse Resp BP Pulse Ox 98.6 F 79 18 102/55 100 06/29/19 15:27 06/29/19 15:27 06/29/19 16:00 06/29/19 15:27 06/29/19 15:27 Gen: NAD, appears comfortable in bed. Abd soft, mod TTP Incision: bandage removed, incision c/d/i with steristrips. Slight drainage present. Assessment: POD1, stable but with continued postop pain and needing assistance with ambulation. Plan: Considering pt does not feel safe going home yet (and it is already 1900), plan to keep pt until AM. Pt is confident she will be comfortable going home at that time since she is improving.
[2019-06-29] MEDS ORDERED: Docusate CAP* 100 MG PO PRN (19:24)
[2019-06-30] MEDS: Ketorolac INJ* 30 MG/ML 1 ML VIAL IV PRN (03:10)
[2019-06-30] MEDS: oxyCODONE/Acetamin 5/325 MG* TAB PO PRN (05:44)
[2019-06-30 08:40] VITALS: BP 119/58
--- NOTE | 2019-06-30 10:13 | SURGPN ---
Subjective - Introduction -: Mrs. Guadarrama is a 38 y/o lady. Admitted on: Admitted to [facility] for observation on 06/28/19 just prior to midnight. ] Patient's surgical date: 06/28/19 Procedure completed: Exploratory laparotomy, Reduction of right Ovarian torsion and Bilateral Ovarian cystectomy. S. Patient states her pain is well managed with PO meds and describes it as a 2 /10. She denies chest pain, shortness of breath, nausea or vomiting. Is tolerating a regular diet and passing flatus, voiding and ambulating without difficulty. O. Vital Signs Temp Pulse Resp BP Pulse Ox 97.5 F 81 16 119/58 100 06/30/19 08:39 06/30/19 08:39 06/30/19 08:39 06/30/19 08:39 06/30/19 08:39 Laboratory Last Values WBC 13.5 10^3/uL (3.5-10.8) H 06/29/19 06:11 RBC 4.66 10^6 /uL (3.70-4.87) 06/29/19 06:11 Hgb 12.3 g/dL (12.0-16.0) 06/29/19 06:11 Hct 38 % (35-47) 06/29/19 06:11 MCV 81 fL (80-97) 06/29/19 06:11 MCH 26 pg (27-31) L 06/29/19 06:11 MCHC 33 g/dL (31-36) 06/29/19 06:11 RDW 15 % (10-15) 06/29/19 06:11 Plt Count 165 10^3/uL (150-450) 06/29/19 06:11 MPV 10.1 fL (7.4-10.4) 06/29/19 06:11 Neut % (Auto) 89.5 % 06/29/19 06:11 Lymph % (Auto) 5.3 % 06/29/19 06:11 [place] % (Auto) 5.1 % 06/29/19 06:11 Eos % (Auto) 0.0 % 06/29/19 06:11 Baso % (Auto) 0.1 % 06/29/19 06:11 Absolute Neuts (auto) 12.1 10^3/ul (1.5-7.7) H 06/29/19 06:11 Absolute Lymphs (auto) 0.7 10^3/ul (1.0-4.8) L 06/29/19 06:11 Absolute Monos (auto) 0.7 10^3/ul (0-0.8) 06/29/19 06:11 Absolute Eos (auto) 0.0 10^3/ul (0-0.6) 06/29/19 06:11 Absolute Basos (auto) 0.0 10^3/ul (0-0.2) 06/29/19 06:11 Absolute Nucleated RBC 0.0 10^3/ul 06/29/19 06:11 Nucleated RBC % 0.0 06/29/19 06:11 Sodium 138 mmol/L (135-145) 06/28/19 17:43 Potassium 3.6 mmol/L (3.5-5.0) 06/28/19 17:43 Chloride 109 mmol/L (101-111) 06/28/19 17:43 Carbon Dioxide 22 mmol/L (22-32) 06/28/19 17:43 Anion Gap 7 mmol/L (2-11) 06/28/19 17:43 BUN 14 mg/dL (6-24) 06/28/19 17:43 Creatinine 0.73 mg/dL (0.51-0.95) 06/28/19 17:43 Est GFR ( Amer) 107.4 (>60) 06/28/19 17:43 Est GFR (Non-Af Amer) 88.8 (>60) 06/28/19 17:43 BUN/Creatinine Ratio 19.2 (8-20) 06/28/19 17:43 Glucose 115 mg/dL (70-100) H 06/28/19 17:43 Calcium 9.2 mg/dL (8.6-10.3) 06/28/19 17:43 Total Bilirubin 0.70 mg/dL (0.2-1.0) 06/28/19 17:43 AST 14 U/L (13-39) 06/28/19 17:43 ALT 11 U/L (7-52) 06/28/19 17:43 Alkaline Phosphatase 60 U/L (34-104) 06/28/19 17:43 Total Protein 6.7 g/dL (6.4-8.9) 06/28/19 17:43 Albumin 4.0 g/dL (3.2-5.2) 06/28/19 17:43 Globulin 2.7 g/dL (2-4) 06/28/19 17:43 Albumin/Globulin Ratio 1.5 (1-3) 06/28/19 17:43 Blood Type B Positive 06/28/19 17:43 Antibody Screen Negative 06/28/19 17:43 PE. Lungs CTA-- b/l, no CVA tenderness. CV--RRR, no abnormal heart sounds noted. Abdomen--Soft, not distended, Normal bowel sounds, appropriately tender. Incision clean/dry/intact with no erythema, discharge or induration. - Medications -: Active Medications Generic Name Dose Route Start Last Admin Trade Name Freq PRN Reason Stop Dose Admin Docusate Sodium 100 mg 06/29/19 19:24 06/29/19 21:35 Colace Cap* PO 100 mg BID PRN Administration CONSTIPATION Lactated Ringer's 1,000 mls @ 125 mls/hr 06/28/19 23:45 06/29/19 09:22 Lactated Ringers 1000 Ml Bag* IV 125 mls/hr PER RATE IRENE Administration Ketorolac Tromethamine 30 mg 06/29/19 07:50 06/30/19 03:10 Toradol Inj* IV 30 mg Q6H PRN Administration PAIN - MILD Oxycodone/Acetaminophen 1 tab 06/29/19 07:48 06/30/19 05:44 Percocet 5/325 Tab* PO 1 tab Q4H PRN Administration PAIN - MODERATE Oxycodone/Acetaminophen 2 tab 06/29/19 07:50 Percocet 5/325 Tab* PO Q4H PRN PAIN - SEVERE - Comments Comments: I/P Post day 2 stable Plan. Discharge home this am. follow up in 1 week at my office, Typed discharge instructions reviewed with patient. Objective - Intake and Output -: Intake & Output 06/28/19 06/29/19 06/30/19 07/01/19 06:59 06:59 06:59 06:59 Intake Total 2050 4104 Output Total 700 560 Balance 1350 3544 Weight 175 lb Intake: IV Fluids 2049 2604 LR 2000 1302 NS 50ML, Cefoxitin 2G 50 Oral 1500 Output: CHELSY #1 10 Urine 400 Atkinson 700 150 Other: Estimated Void Medium # Bowel Movements 0 # Voids 1 ADLs: Meal Record Start: 06/29/19 00: 44 Freq: Status: Active Protocol: Created 06/29/19 00:44 System (Rec: 06/29/19 00:44 System [id number]) Document 06/29/19 22:35 [id number] (Rec: 06/29/19 22:35 [id number]) Intake and Output Start: 06/28/19 16: 31 Freq: Status: Active Protocol: Created 06/28/19 16:31 System (Rec: 06/28/19 16:31 System [id number]) Intake and Output Start: 06/29/19 00: 44 Freq: DAILY@0600,1400,2200 Status: Active Protocol: Created 06/29/19 00:44 System (Rec: 06/29/19 00:44 System [id number]) Document 06/29/19 05:43 [id number] (Rec: 06/29/19 05:43 [id number] [facility]-M07) Document 06/29/19 07:22 [id number] (Rec: 06/29/19 07:22 [id number] [facility]-M07) Document 06/29/19 10:20 [id number] (Rec: 06/29/19 10:20 [id number] [facility]-C08) Document 06/29/19 14:05 [id number] (Rec: 06/29/19 14:06 [id number] [facility]-C03) Document 06/29/19 22:23 [id number] (Rec: 06/29/19 22:31 [id number] [facility]-M18) Document 06/29/19 22:36 [id number] (Rec: 06/29/19 22:36 [id number] [facility]-M18) Document 06/29/19 23:09 [id number] (Rec: 06/29/19 23:10 [id number] [facility]-M18) Document 06/30/19 05:10 [id number] (Rec: 06/30/19 05:32 [id number] [facility]-C05) Document 06/30/19 05:32 [id number] (Rec: 06/30/19 05:32 [id number] [facility]-M16)
--- NOTE | 2019-06-30 19:57 | OP ---
CC: Michelle Bolaños MD * DATE OF OPERATION: 06/28/19 - ROOM #333 DATE OF : 78 SURGEON: Heath Duong MD CROP DUSTER: Michelle Bolaños MD ANESTHESIA: General anesthetic with endotracheal intubation. PRE-OP DIAGNOSES: 1. Right ovarian torsion. 2. Bilateral ovarian cystic masses. POST-OP DIAGNOSES: 1. Right ovarian torsion. 2. Bilateral ovarian cystic masses, pending pathology. OPERATIVE PROCEDURE: Exploratory laparotomy with reduction of right ovarian torsion and bilateral ovarian cystectomy. ESTIMATED BLOOD LOSS: None. SPECIMENS SENT TO PATHOLOGY: Right and left ovarian cystic masses. FLUIDS: She received 2 L of IV crystalloid fluid. URINE OUTPUT: 300 cc of clear urine. FINDINGS: The patient was noted to have a torsed right ovary at its pedicle. She was also noted to have a large, 6 to 7 cm, right ovarian cystic mass consistent with a possible dermoid and a 4 cm left ovarian cystic mass, also consistent with dermoid, pending pathology. She also had a normal uterus, bladder, and bowel and there were no complications. DESCRIPTION OF PROCEDURE: The patient was taken to the operating room where she was identified. She was placed on the operating table in the supine position, prepped and draped in a normal sterile fashion. A mini laparotomy Pfannenstiel skin incision was made with a knife and carried through to underlying layer of fascia. The fascia was nicked in the midline and extended laterally with curved Burden scissors. It was then grasped superiorly and inferiorly with Zaira clamps and dissected off sharply from the rectus muscle. The rectus muscle was in the midline bluntly. The peritoneum was identified, grasped with pickups, entered sharply with Metzenbaum scissors and extended superiorly and inferiorly sharply. The patient was then placed in a Trendelenburg position. Moist sponges were used to pack the bowel away from the pelvis and a self-retaining retractor was then placed in the laparotomy incision. At this point, I was able to grasp the fallopian tube with a [place]. The right ovary was noted to be enlarged. I was able to deliver the right ovary through the incision and the ovarian torsion was then reduced. I then proceeded to perform an ovarian cystectomy of the right ovarian mass. This was done by sharp and blunt dissection and the cyst was removed intact and sent to Pathology. The defect on the ovary was closed using 3-0 Polysorb sutures in a baseball stitch fashion with good hemostasis noted. The right ovary was then reintroduced into the patient's abdomen. Attention was then brought on to the patient's left ovary where an ovarian cystectomy was performed in a similar fashion. The cyst in the left ovary was removed intact and also sent to Pathology and the ovarian defect was also closed using a baseball stitch technique with 3-0 Polysorb suture. I proceeded to irrigate the patient's abdomen. All the surgical pedicles were noted to be completely hemostatic. The fluid in the abdomen was suctioned. All the sponges were also removed from the patient's abdomen. The peritoneum was then closed using 3-0 Polysorb suture in a running fashion. The fascia was closed using 0 Polysorb suture in a running fashion and the skin was closed with 4-0 Monocryl subcuticular stitch. The patient tolerated the procedure well. Sponge, lap, and needle counts were correct x2. She was then transferred to the recovery room area in stable condition. [id number]/[facility] #: [id number] MASHA
== END 2019-06-30 11:20 | disposition home or self-care (01) ==
LOC: ED 16:17 → OR 18:32 → SSU 06-29 00:20
PROVIDERS: ADMIT Obstetrics & Gynecology; ATTEND Obstetrics & Gynecology
DX: D27.0 Benign neoplasm of right ovary (principal); D27.1 Benign neoplasm of left ovary; R10.31 Right lower quadrant pain; R11.2 Nausea with vomiting, unspecified; N83.511 Torsion of right ovary and ovarian pedicle; D27.9 Benign neoplasm of unspecified ovary; Z23 Encounter for immunization
CPT/HCPCS: 36415; 76830; 80053; 85025; 86850; 86900; 86901; 88305; 90471; 90686; 96361; 96374; 96375; 96376; 99283; A9270-GY; G0008; G0378; J0330; J0694; J1100; J1170; J1240; J1885; J2250; J2270; J2405; J2704; J3010; J3490

== ENCOUNTER 2019-09-01 08:42 | Emergency (ER) | payer BC ==
[2019-09-01] MEDS ORDERED: Ondansetron INJ* 2 MG/ML VIAL IV ONE (09:16)
[2019-09-01] MEDS ORDERED: NS 0.9% 1000 ML** 1,000 ML IV ONE (09:16)
[2019-09-01] MEDS ORDERED: Morphine 4 MG/ML VIAL (1 ml) 4 MG/ML VIAL IV ONE (09:16)
--- NOTE | 2019-09-01 09:16 | ED ---
Abdominal Pain/Female - HPI Summary HPI Summary: 38-year-old female with significant past medical history of dermatomyositis currently taking hydroxychloroquine presents to the emergency department today complaining of right-sided abdominal pain which began this morning. In July patient had ovarian torsion due to a large cyst which was removed by Dr. Duong. 4 days ago patient had an ultrasound done which showed evidence of a large unknown etiology mass on her right ovary and she has a scheduled operation for tomorrow 09/02/2019 for removal of her right ovary and fallopian tube. Patient presents to the emergency department today with sudden onset right lower quadrant pain associated nausea. LMP 1 week ago and regular. Patient denies recent recreational drug use or alcohol use. Patient has not taken anything for pain prior to arrival. Family history and social history noncontributory. Patient denies fever, chest pain, shortness of breath, pain with urination, vaginal bleeding, vaginal discharge, rash. - History of Current Complaint Chief Complaint: EDAbdPain Stated Complaint: LOWER ABD PRESSURE Time Seen by Provider: 09/01/19 08:53 Hx Obtained From: Patient Onset/Duration: Sudden Onset Timing: Constant Severity Initially: Severe Severity Currently: Severe Pain Intensity: 0 - 8 Pain Scale Used: 0-10 Numeric Location: Discrete At: RUQ, Discrete At: RLQ Radiates: Yes Radiates to: Back Character: Cramping Aggravating Factor(s): Other: - sitting upright Alleviating Factor(s): Position - supine Associated Signs and Symptoms: Positive: Nausea. Negative: Cough, Blood in Stool, Vaginal Bleeding, Vaginal Discharge, Vomiting - Risk Factors Ovarian Torsion Risk Factor: Reproductive Age, Ovarian Cysts/Tumors Allergies/Adverse Reactions: Allergies Allergy/AdvReac Type Severity Reaction Status Date / Time Tree Nuts Allergy Severe Anaphylatic Verified 08/31/19 17:42 Shock peanut Allergy Nausea And Verified 06/27/19 11:43 Vomiting peanut oil Allergy Nausea And Verified 06/27/19 11:43 Vomiting Seasonal Allergies Allergy Sneezing Uncoded 08/31/19 17:42 PMH/Surg Hx/FS Hx/Imm Hx Endocrine/Hematology History: Denies: Hx Anticoagulant Therapy, Hx Diabetes Cardiovascular History: Denies: Hx Hypertension, Hx Pacemaker/ICD GI History: Denies: Hx Cirrhosis, Hx Crohn's Disease, Hx Diverticulosis, Hx Gall Bladder Disease, Hx Gastroesophageal Reflux Disease, Hx Gastrointestinal Bleed, Hx Hiatal Hernia, Hx Irritable Bowel, Hx Obstructive Bowel, Hx Ulcer, Hx Urosepsis History: Denies: Hx Acute Renal Failure, Hx Chronic Renal Failure, Hx Kidney Infection , Hx Kidney Stones, Hx Renal Disease Musculoskeletal History: Reports: Other Musculoskeletal History - Deratomyositis , 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, degenerative bone diseases Denies: Hx Rheumatoid Arthritis - some issues, auto immune problems Sensory History: Reports: Hx Contacts or Glasses Denies: Hx Hearing Aid Opthamlomology History: Reports: Hx Contacts or Glasses Psychiatric History: Denies: Hx Panic Disorder, Hx Substance Abuse Infectious Disease History: No Infectious Disease History: Denies: Traveled Outside the [place] in Last 30 Days - Family History Known Family History: Positive: Other - allergies - Social History Alcohol Use: None Hx Substance Use: No Substance Use Type: Reports: None Hx Tobacco Use: No Smoking Status (MU): Never Smoked Tobacco Review of Systems Constitutional: Negative Eyes: Negative ENT: Negative Cardiovascular: Negative Respiratory: Negative Positive: Abdominal Pain, Nausea. Negative: Vomiting, Diarrhea Genitourinary: Negative Musculoskeletal: Negative Skin: Negative Neurological: Negative Psychological: Normal All Other Systems Reviewed And Are Negative: Yes Physical Exam - Summary Physical Exam Summary: Inspection reveals no masses or ecchymosis. Auscultation reveals normoactive bowel sounds. Palpation reveals tenderness of the right upper and lower quadrant. Positive Rovsing, obturator, psoas, McBurney sign. Triage Information Reviewed: Yes Vital Signs On Initial Exam: Initial Vitals Temp Pulse Resp BP Pulse Ox 98.6 F 90 18 143/83 100 09/01/19 08:47 09/01/19 08:47 09/01/19 08:47 09/01/19 08:47 09/01/19 08:47 Vital Signs Reviewed: Yes Appearance: Positive: Well-Appearing, Well-Nourished, Pain Distress Skin: Positive: Warm, Skin Color Reflects Adequate Perfusion Eyes: Positive: EOMI, GERI ENT: Positive: Hearing grossly normal Respiratory/Lung Sounds: Positive: Clear to Auscultation, Breath Sounds Present Cardiovascular: Positive: RRR, S1, S2 Abdomen Description: Positive: Soft, McBurney's Point Tenderness. Negative: Distended, Guarding Bowel Sounds: Positive: Present Musculoskeletal: Positive: Strength/ROM Intact Neurological: Positive: Sensory/Motor Intact, Alert, Oriented to Person Place, Time, Normal Gait, Speech Normal Psychiatric: Positive: Affect/Mood Appropriate, Anxious AVPU Assessment: Alert Procedures - Sedation Patient Received Moderate/Deep Sedation with Procedure: No Diagnostics - Vital Signs Vital Signs Temp Pulse Resp BP Pulse Ox 09/01/19 08:47 98.6 F 90 18 143/83 100 - Laboratory Result Diagrams: 09/01/19 09:58 09/01/19 09:58 Lab Statement: Any lab studies that have been ordered have been reviewed, and results considered in the medical decision making process. Abdominal Pain Fem Course/Dx - Course Course Of Treatment: Patient was evaluated in the emergency department today for abdominal pain. Patient's skin exam vitals are stable and she is afebrile. Laboratory studies are ordered as well as a transvaginal ultrasound to about a possible torsion, ectopic , appendicitis. Laboratory studies show no leukocytosis or anemia. There are no significant electrolyte abnormalities. Lactic acid level is mildly elevated at 2.1 and the patient was given 1 L of normal saline for correction. Urinalysis negative. Transvaginal ultrasound found: 1. NO SONOGRAPHIC FEATURES OF TORSION. PLEASE NOTE THAT PARTIAL OR INTERMITTENT TORSION MAY BE SONOGRAPHICALLY NORMAL. 2. THERE IS A TUBULAR HYPOECHOIC STRUCTURE ALONG THE RIGHT ADNEXA WITH CENTRAL ECHOGENICITY. THIS MAY REPRESENT AN EDEMATOUS FALLOPIAN TUBE WITH COMPLEX FLUID CENTRALLY. THE DIFFERENTIAL INCLUDES PYOSALPINX. 3. THERE IS AN ECHOGENIC CYSTIC LESION OF THE RIGHT OVARY MEASURING UP TO 2.7 CM. THE DIFFERENTIAL INCLUDES HEMORRHAGIC CYST. Professional Nurse Dr. Draper was consulted and suggested sending the patient home on oral pain medication and having her follow up with Dr. Duong tomorrow for her planned surgery as there was no pathology requiring immediate or emergent surgery at this time. Patient agrees with this plan. - Diagnoses Differential Diagnosis: Positive: Appendicitis, Ectopic , Gall Bladder Disease, Ovarian Cyst, Urinary Tract Infection, Other - Ovarian torsion Provider Diagnoses: Abdominal pain, Ovarian cyst - Provider Notifications Discussed Care Of Patient With: Mirian Draper - felt the patient had no pathology requiring immediate intervention and ultimately the patient needs surgical intervention which she has scheduled for tomorrow. The surgery would be non-emergent so she may be discharged home with oral pain medications with follow-up with Dr. Duong tomorrow for surgery. Time Discussed With Above Provider: 10:36 Discharge ED - Sign-Out/Discharge Documenting (check all that apply): Patient Departure - Discharge Plan Condition: Stable Disposition: HOME Prescriptions: Ondansetron ODT TAB* [Zofran 4 MG Odt TAB*] 4 mg PO Q6H PRN #12 tab.odt PRN Reason: Nausea oxyCODONE/Acetamin 5/325 MG* [Percocet 5/325 TAB*] 1 tab PO Q4H PRN #6 tab MDD 6 PRN Reason: Pain - Severe Patient Education Materials: Ovarian Cyst (ED) Referrals: Eric Pope MD [Primary Care Provider] - Heath Duong MD [Medical Doctor] - 1 Day Additional Instructions: You were seen in the emergency department today due to abdominal pain. There is no evidence of infectious pathology however ultrasound revealed that there may be evidence of intermittent ovarian torsion, and possibly hemorrhagic ovarian cyst. I spoke with the planning aide title one kindergarten teacher who felt you did not require surgery at this time and the best plan of action would be to follow-up with Dr. Duong for your planned surgery tomorrow. I will be giving you 1 day worth of pain medication in order for you to be comfortable while you wait for your surgery tomorrow. Please return to the emergency department immediately if you develop any new or worsening symptoms. - Billing Disposition and Condition Condition: STABLE Disposition: Home
[2019-09-01 10:09] LABS: ABS Monocytes 0.3 10^3/ul (0-0.8); ABS Neutrophils 4.8 10^3/ul (1.5-7.7); Eosinophil % 0.5 %; Hematocrit 42 % (35-47); Lymphocyte % 15.9 %; Mean Corpuscular HGB Conc 33 g/dL (31-36); Mean Corpuscular Hemoglobin 27 pg (27-31); Mean Corpuscular Volume 81 fL (80-97); Platelet Count 230 10^3/uL (150-450); Red Blood Count 5.21 10^6 /uL (3.70-4.87); Red Cell Distribution Width 15 % (10-15); White Blood Count 6.1 10^3/uL (3.5-10.8)
[2019-09-01 10:17] LABS: INR 1.09 (0.82-1.09)
[2019-09-01 10:23] LABS: Urine Appearance Clear; Urine Bilirubin Negative (Negative); Urine Blood Negative (Negative); Urine Color Yellow; Urine Glucose Negative (Negative); Urine Ketones Negative (Negative); Urine Nitrite Negative (Negative); Urine Protein Negative (Negative); Urine Specific Gravity 1.009 (1.010-1.030); Urine Urobilinogen Negative (Negative)
[2019-09-01 10:28] LABS: ALT 14 U/L (7-52); AST 17 U/L (13-39); Albumin 4.9 g/dL (3.2-5.2); Albumin/Globulin Ratio 1.5 (1-3); Alkaline Phosphatase 87 U/L (34-104); Anion Gap 10 mmol/L (2-11); BUN/Creatinine Ratio 12.9 (8-20); Blood Urea Nitrogen 9 mg/dL (6-24); C Reactive Protein 1.85 mg/L (<8.01); CO2 Carbon Dioxide 25 mmol/L (22-32); Calcium 10.1 mg/dL (8.6-10.3); Chloride 104 mmol/L (101-111); EGFR African American 112.7 (>60); EGFR Non-African American 93.2 (>60); Globulin 3.2 g/dL (2-4); Glucose 97 mg/dL (70-100); Potassium 3.9 mmol/L (3.5-5.0); Sodium 139 mmol/L (135-145); Total Protein 8.1 g/dL (6.4-8.9)
[2019-09-01 10:32] LABS: HCG Pregnancy < 0.60 mIU/mL
[2019-09-01 11:22] VITALS: BP 122/66
== END 2019-09-01 11:20 | disposition home or self-care (01) ==
LOC: ED 08:42
DX: N83.201 Unspecified ovarian cyst, right side (principal); R11.0 Nausea; M33.10 Other dermatomyositis, organ involvement unspecified; M94.0 Chondrocostal junction syndrome [Tietze]; Z91.018 Allergy to other foods; Z91.010 Allergy to peanuts
CPT/HCPCS: 36415; 76830; 80053; 81003; 83605; 83690; 84702; 85025; 85610; 85730; 86140; 96361; 96374; 96375; 99283; J2270; J2405

== ENCOUNTER 2019-09-02 08:14 | Day surgery (SDC) | payer BC ==
[~2019-09-02 08:14] MED LIST: Buffered Lidocaine 1% SYRIN* 1 ML/SYRINGE INTRADERM ONE; Lactated Ringers 1000 ML Bag* 1,000 ML IV SCH
[2019-09-02] MEDS ORDERED: Buffered Lidocaine 1% SYRIN* 1 ML/SYRINGE INTRADERM ONE (09:05)
[2019-09-02] MEDS ORDERED: ceFAZolin 2 GM in NS PREMIX(*) 2 GM/100 ML BAG IVPB ONE (09:05)
[2019-09-02] MEDS ORDERED: Bupivacaine 0.5%* 50 ML MDV VIAL ONE (10:25)
[2019-09-02] MEDS ORDERED: Lidocaine 2% PF * 5 ML VIAL ONE (10:39)
[2019-09-02] MEDS ORDERED: Propofol* 10 MG/ML 20 ML BTL ONE (10:39)
[2019-09-02] MEDS ORDERED: Rocuronium* 10 MG/ML VIAL ONE (10:41)
[2019-09-02] MEDS ORDERED: Midazolam* 1 MG/ML 2 ML VIAL (2 MG) ONE (10:41)
[2019-09-02] MEDS ORDERED: fentaNYL* 50 MCG/ML 2 ML VIAL (100 MCG VIAL) ONE ×2 (10:41→13:17)
[2019-09-02] MEDS ORDERED: EPHEDrine (Pressors)* 50 MG/ML VIAL ONE (11:12)
[2019-09-02] MEDS ORDERED: Phenylephrine 40 MCG/ML SYRINGE ONE (11:13)
[2019-09-02] MEDS ORDERED: Ondansetron INJ* 2 MG/ML VIAL ONE (11:15)
[2019-09-02] MEDS ORDERED: Dexamethasone IV* 4 MG/ML 1 ML (4 MG) ONE (11:15)
[2019-09-02] MEDS ORDERED: Ketorolac INJ* 30 MG/ML 1 ML VIAL ONE (11:15)
[2019-09-02] MEDS ORDERED: Metoclopramide IV* 5 MG/ML 2 ML VIAL ONE (11:15)
[2019-09-02] MEDS ORDERED: Phenylephrine 10 MG/ML VIAL* 1 ML VIAL ONE (11:16)
[2019-09-02] MEDS ORDERED: Acetaminophen TAB* 325 MG PO PRN (11:40)
[2019-09-02] MEDS ORDERED: Naloxone* 0.4 MG/ML 1 ML VIAL IV PRN (11:40)
[2019-09-02] MEDS ORDERED: DiMENhydriNATE IV* 50 MG/ML VIAL IV PUSH PRN (11:40)
[2019-09-02] MEDS ORDERED: oxyCODONE TAB* 5 MG TAB PO PRN (11:40)
[2019-09-02] MEDS: fentaNYL* 50 MCG/ML 2 ML VIAL (100 MCG VIAL) IV PRN ×2 (13:19→14:55)
[2019-09-02] MEDS ORDERED: DiMENhydriNATE IV* 50 MG/ML VIAL ONE (13:20)
[2019-09-02] MEDS ORDERED: oxyCODONE TAB* 5 MG TAB ONE (14:53)
[2019-09-02 15:04] VITALS: BP 113/58
--- NOTE | 2019-09-11 22:57 | OP ---
DATE OF OPERATION: 09/02/19 [facility] DATE OF : 78 SURGEON: Heath Duong MD. CONFORMAL PAD FORMER: Pat Bhandari, certified nurse practitioner. ANESTHESIA: General anesthetic with endotracheal intubation. PRE-OP DIAGNOSES: Persistent right lower quadrant pain and right ovarian cyst. POST-OP DIAGNOSES: Persistent right lower quadrant pain and right ovarian cyst along with a right ovarian and tubal torsion. OPERATIVE PROCEDURE: Laparoscopic right salpingo-oophorectomy. ESTIMATED BLOOD LOSS: Less than 5 cc. SPECIMENS SENT TO PATHOLOGY: Right fallopian tube and ovary. FLUIDS: The patient received 1 L of IV crystalloid fluid. URINE OUTPUT: 100 cc of clear urine. FINDINGS: The patient was noted to have a normal uterus with a normal left tube and ovary. The right ovary was torsed at the proximal portion of the uteroovarian ligament as well as the fallopian tube and this proved very difficult to reduce the torsion laparoscopically. The bowel and bladder were within normal limits. DESCRIPTION OF PROCEDURE: The patient was taken to the operating room where she was identified. She was placed in the operating table where a general anesthetic with endotracheal intubation was obtained without difficulty. She was then placed in the dorsal lithotomy position, prepped and draped in a normal sterile fashion. Attention was then brought on to the patient's peritoneum and the bladder was drained of clear urine using Atkinson catheter. A speculum was inserted into the patient's vagina and the cervix was identified and grasped with a single tooth tenaculum. The uterus was sounded and noted to be in an anteverted position and through the cervix, a ClearView uterine manipulator was introduced and a balloon in the manipulator was filled with 3 cc of water. The speculum was removed from the patient's vagina as well as single tooth tenaculum and then attention was then brought onto the patient's abdomen. In the abdomen, a 1 cm infraumbilical skin incision was made with a knife and carried through to the underlying layer of fascia. The fascia was then nicked in the midline and extended superiorly and inferiorly sharply. Entry into the peritoneum and to the abdomen was confirmed using a Sherice clamp and S retractors under direct visualization. Through this incision, a blunt trocar was introduced and the balloon in the trocar was insufflated with air. The patient's abdomen was then insufflated with CO2 gas and 2 other trocars were introduced at the right and left quadrant in the patient's abdomen under direct visualization. An attempt was made to reduce the torsion; however, this was proving difficult and unsuccessful. I therefore proceeded to identify the infundibulopelvic ligament. This was grasped on the right side. This was grasped with LigaSure device and double coagulated and then transected with a LigaSure device. I proceeded with coagulation and transection with the LigaSure device until I was able to remove the right ovary/fallopian tube. This liberated the torsion at the proximal aspect of the uterus to the uteroovarian ligament. The specimen was removed through the umbilical port and sent to Pathology. We then proceeded to take a second look at the surgical pedicle and this was noted to be completely hemostatic. All of the instruments were then removed from the patient's abdomen. The fascia on the umbilicus was closed using 0 Polysorb suture in a running fashion and all the skin incisions on the abdomen were closed using 4-0 Monocryl stitches in a subcuticular fashion. The vaginal instruments were also removed as well as the Atkinson catheter. The patient tolerated the procedure well. Sponge, lap, and needle counts were correct x2. She was then transferred to recovery room area in stable condition. [id number]/[facility] #: [id number] MASHA
== END 2019-09-02 16:00 | disposition home or self-care (01) ==
LOC: OR 08:14
PROVIDERS: ATTEND Obstetrics & Gynecology
DX: N83.53 Torsion of ovary, ovarian pedicle and fallopian tube (principal); N83.11 Corpus luteum cyst of right ovary; R10.31 Right lower quadrant pain; N94.9 Unspecified condition associated with female genital organs and menstrual cycle; M33.90 Dermatopolymyositis, unspecified, organ involvement unspecified
CPT/HCPCS: 88305; A9270-GY; J0690; J1100; J1240; J1885; J2250; J2405; J2704; J2765; J3010; J3490

== ENCOUNTER 2019-09-23 11:29 | Emergency (ER) | payer BC ==
--- OUTSIDE RECORDS SUMMARY | 2019-09-23 11:36 | XMS REPORT | Continuity of Care Document ---
:1980 External Reference #:[id number] Author Name Diana Sherman PA-C Address [address] [place] [address] Care Team Providers Name Role Phone Eric Pope MD - Family Medicine Care Team Information Sonoscope Operator Problems Active Problems Provider Date Nausea Diana Sherman PA-C Onset: 09/21/2019 Abdominal pain Diana Sherman PA-C Onset: 09/21/2019 Social History Type Date Description Comments Sex Unknown Tobacco Use Start: Unknown Patient has never smoked Smoking Status Reviewed: 09/21/19 Patient has never smoked Allergies, Adverse Reactions, Alerts Active Allergies Reaction Severity Comments Date Tree Nuts anaphylatic 09/21/2019 Peanut nausea/vomiting 09/21/2019 Peanut Oil nausea/vomiting 09/21/2019 Seasonal 09/21/2019 Medications Active Medications SIG Qnty Indications Ordering Date Provider Pantoprazole Sodium Unknown 40mg [address] Epinephrine Use as Directed Unknown 0.3mg/0.3ML Intramuscularly as 0 Solution Auto-Inject Needed For Allergic Reaction Hydroxychloroquine Chase Blackwood, Sulfate 0 200mg Tablets Multivitamins Unknown 0 Immunizations Description No Information Available Vital Signs Date Vital Result Comment 09/21/2019 12:56pm Height 67 inches 5'7" Weight 173.00 lb BP Systolic 128 mmHg BP Diastolic 70 mmHg Heart Rate 81 /min BMI (Body Mass Index) 27.1 kg/m2 Results Test Acquired Date Facility Test Result H/L Range Note Xray 09/18/2019 [facility] [place] US, Gallbladder ([id number]) <pending> Xray 09/01/2019 [facility] [place] Radiology US, Trans-vaginal <pending> Procedures Description No Information Available Medical Devices Description No Information Available Encounters Description No Information Available Assessments Date Code Description Provider 09/21/2019 R10.10 Upper abdominal pain, unspecified GLORIA Roland 09/21/2019 R11.0 Nausea Diana Sherman PA-C Plan of Treatment Future Appointment(s):09/22/2019 9:15 am - Molina Wiley MD [facility]09/21/2019 - MARIPOSA RolandCR10.10 Upper abdominal pain, [id number] Nausea Functional Status Description No Information Available Mental Status Description No Information Available Referrals Description No Information Available
--- OUTSIDE RECORDS SUMMARY | 2019-09-23 11:36 | XMS REPORT | Continuity of Care Document ---
:1980 External Reference #:[id number] Author Name GLORIA Flowers Address [address] [place] [address] Care Team Providers Name Role Phone Kurt Carlton MD - Rheumatology Care Team Information Tool Crib Lead [phone] Valentin Lisa MD - Family Medicine Care Team Information Tool Crib Lead [phone] Ronny Ramirez MD Care Team Information Tool Crib Lead [phone] Eric Pope MD - Family Medicine Care Team Information Tool Crib Lead [phone] Problems Active Problems Provider Date Chest pain Valentin Lisa M.D. Onset: 05/27/2011 Symptom of skin and integumentary tissue Valentin Lisa M.D. Onset: 2010 Difficulty speaking Valentin Lisa M.D. Onset: 06/19/2011 Malaise and fatigue Valentin Lisa M.D. Onset: 01/08/2012 Muscle weakness Valentin Lisa M.D. Onset: 01/08/2012 Social History Type Date Description Comments Sex Unknown Tobacco Use Start: Unknown Nonsmoker Smoking Status Reviewed: 09/19/19 Nonsmoker ETOH Use Rare Tobacco Use Start: Unknown nonsmoker Allergies, Adverse Reactions, Alerts Active Allergies Reaction Severity Comments Date NKDA 05/27/2011 Peanuts ANAPHYLACTIC 09/19/2019 Tree Nuts 09/19/2019 Medications Active Medications SIG Qnty Indications Ordering Date Provider Zovirax apply to 15gm Naomie Xie, 07/13/2013 5% Ointment affected area ACQUISITION COST ESTIMATOR every 4 hours Valtrex 1 by mouth 30tabs Naomie Xie, 07/13/2013 500mg Tablets twice a day x ACQUISITION COST ESTIMATOR 5d per outbreak prn Hydroxychloroquine 1 po bid Unknown Sulfate Endo 200mg Tablets Pantoprazole Sodium 1 by mouth Unknown 40mg every day Tablets Tramadol HCL 1 by mouth Unknown 50mg Tablets every 6 hours as needed Medications Administered in Office Medication SIG Qnty Indications Ordering Provider Date TB Intradermal Test Bharathi Mcdonald 01/25/2004 Injection TB Intradermal Test Bharathi Mcdonald 01/27/2002 Injection TB Intradermal Test Joe Mcdonald-Ivette 04/06/1998 Injection Immunizations CPT Code Status Date Vaccine Reaction Lot # [id number] Given 06/07/2018 Influenza Virus Vaccine, [id number] Recombinant [place], [place] [address] Given 06/15/2017 Influenza Vac, Quadrivalent, [id number] [address] Given 06/16/2016 Influenza Vac, Quadrivalent, [id number] [address] Given 06/07/2015 Influenza Vac, Quadrivalent, [id number] [address] Given 05/29/2014 DO Not Use Split Influenza [id number] Virus Vaccine 73460 Given 05/21/2013 Preservative free flu 3 yrs+ [id number] and older 95970 Given 06/04/2012 DO Not Use Split Influenza [id number] Virus Vaccine 19311 Given 01/08/2012 Tdap Tetanus, W Pertussis [id number] 37604 Given 06/15/2011 DO Not Use Split Influenza Virus Vaccine 22777 Given 06/15/2011 DO Not Use Split Influenza no reaction noted [id number] Virus Vaccine 78251 Given 07/30/2009 DO Not Use Split Influenza [id number] Virus Vaccine 94922 Given 06/21/2008 DO Not Use Split Influenza [id number] Virus Vaccine 11539 Given 08/20/2007 DO Not Use Split Influenza [id number] Virus Vaccine 48171 Given 06/22/2005 DO Not Use Split Influenza Virus Vaccine 66543 Given 12/12/1997 MMR Virus Immunization Vital Signs Date Vital Result Comment 09/19/2019 9:56am BP Systolic 114 mmHg BP Diastolic 72 mmHg Heart Rate 76 /min Body Temperature 97.9 F Height 66 inches 5'6" measured Weight 174.00 lb BMI (Body Mass Index) 28.1 kg/m2 03/19/2019 6:56pm BP Systolic 100 mmHg BP Diastolic 56 mmHg Heart Rate 80 /min Body Temperature 98.6 F Respiratory Rate 12 /min Height 66 inches 5'6" measured Weight 172.00 lb BMI (Body Mass Index) 27.8 kg/m2 Results Test Acquired Date Facility Test Result H/L Range Note CBC Auto Diff 09/01/2019 [facility] White Blood 6.1 10^3/uL Normal 3.5-10.8 Count Red Blood Count 5.21 10^6/uL High 3.70-4.87 Hemoglobin 14.0 g/dL Normal 12.0-16.0 Hematocrit 42 % Normal 35-47 Mean Corpuscular Volume 81 fL Normal 80-97 Mean Corpuscular Hemoglobin 27 pg Normal 27-31 Mean Corpuscular HGB Conc 33 g/dL Normal 31-36 Red Cell Distribution Width 15 % Normal 10-15 Platelet Count 230 10^3/uL Normal 150-450 Mean Platelet Volume 9.0 fL Normal 7.4-10.4 Abs Neutrophils 4.8 10^3/uL Normal 1.5-7.7 Abs Lymphocytes 1.0 10^3/uL Normal 1.0-4.8 Abs Monocytes 0.3 10^3/uL Normal 0-0.8 Abs Eosinophils 0.0 10^3/uL Normal 0-0.6 Abs Basophils 0.0 10^3/uL Normal 0-0.2 Abs Nucleated RBC 0.0 10^3/uL Granulocyte % 78.2 % Lymphocyte % 15.9 % Monocyte % 4.8 % Eosinophil % 0.5 % Basophil % 0.6 % Nucleated Red Blood Cells % 0.0 Comp Metabolic Panel 09/01/2019 [facility] Sodium 139 mmol/L Normal 135-145 Potassium 3.9 mmol/L Normal 3.5-5.0 Chloride 104 mmol/L Normal 101-111 Co2 Carbon Dioxide 25 mmol/L Normal 22-32 Anion Gap 10 mmol/L Normal 2-11 Glucose 97 mg/dL Normal 70-100 Blood Urea Nitrogen 9 mg/dL Normal 6-24 Creatinine 0.70 mg/dL Normal 0.51-0.95 BUN/Creatinine Ratio 12.9 Normal 8-20 Calcium 10.1 mg/dL Normal 8.6-10.3 Total Protein 8.1 g/dL Normal 6.4-8.9 Albumin 4.9 g/dL Normal 3.2-5.2 Globulin 3.2 g/dL Normal 2-4 Albumin/Globulin Ratio 1.5 Normal 1-3 Total Bilirubin 0.90 mg/dL Normal 0.2-1.0 Alkaline Phosphatase 87 U/L Normal 34-104 Alt 14 U/L Normal 7-52 Ast 17 U/L Normal 13-39 Egfr Non- 93.2 >60 Egfr 112.7 >60 1 Laboratory test finding 09/01/2019 [facility] Lipase 20 U/L Normal 11.0-82.0 C Reactive Protein 1.85 mg/L Normal <8.01 HCG < 0.60 mIU/mL 2 Urinalysis Profile 09/01/2019 [facility] Urine Color Yellow Urine Appearance Clear Urine Specific [place] 1.009 Low 1.010-1.030 Urine pH 8.0 Normal 5-9 Urine Urobilinogen Negative Negative Urine Ketones Negative Negative Urine Protein Negative Negative Urine Leukocytes Negative Negative Urine Blood Negative Negative Urine Nitrite Negative Negative Urine Bilirubin Negative Negative Urine Glucose Negative Negative Inr/Protime 09/01/2019 [facility] Inr 1.09 Normal 0.82-1.09 3 Laboratory test 09/01/2019 [facility] Partial Thrombo 33.0 seconds Normal 26.0- 38.0 finding Time PTT Lactic Acid 2.1 mmol/L Critical high 0.5-2.0 4 CBC Auto Diff 06/28/2019 [facility] White Blood Count 7.5 10^3/uL Normal 3.5- 10.8 Red Blood Count 4.82 10^6/uL Normal 3.70-4.87 Hemoglobin 12.6 g/dL Normal 12.0-16.0 Hematocrit 39 % Normal 35-47 Mean Corpuscular Volume 81 fL Normal 80-97 Mean Corpuscular Hemoglobin 26 pg Low 27-31 Mean Corpuscular HGB Conc 33 g/dL Normal 31-36 Red Cell Distribution Width 15 % Normal 10-15 Platelet Count 173 10^3/uL Normal 150-450 Mean Platelet Volume 9.2 fL Normal 7.4-10.4 Abs Neutrophils 6.0 10^3/uL Normal 1.5-7.7 Abs Lymphocytes 0.9 10^3/uL Low 1.0-4.8 Abs Monocytes 0.5 10^3/uL Normal 0-0.8 Abs Eosinophils 0.0 10^3/uL Normal 0-0.6 Abs Basophils 0.1 10^3/uL Normal 0-0.2 Abs Nucleated RBC 0.0 10^3/uL Granulocyte % 79.8 % Lymphocyte % 11.9 % Monocyte % 6.8 % Eosinophil % 0.6 % Basophil % 0.9 % Nucleated Red Blood Cells % 0.1 Type & Screen 06/28/2019 [facility] Patient Blood Type B Positive Antibody Screen NEGATIVE Comp Metabolic Panel 06/28/2019 [facility] Sodium 138 mmol/L Normal 135-145 Potassium 3.6 mmol/L Normal 3.5-5.0 Chloride 109 mmol/L Normal 101-111 Co2 Carbon Dioxide 22 mmol/L Normal 22-32 Anion Gap 7 mmol/L Normal 2-11 Glucose 115 mg/dL High 70-100 Blood Urea Nitrogen 14 mg/dL Normal 6-24 Creatinine 0.73 mg/dL Normal 0.51-0.95 BUN/Creatinine Ratio 19.2 Normal 8-20 Calcium 9.2 mg/dL Normal 8.6-10.3 Total Protein 6.7 g/dL Normal 6.4-8.9 Albumin 4.0 g/dL Normal 3.2-5.2 Globulin 2.7 g/dL Normal 2-4 Albumin/Globulin Ratio 1.5 Normal 1-3 Total Bilirubin 0.70 mg/dL Normal 0.2-1.0 Alt 11 U/L Normal 7-52 Ast 14 U/L Normal 13-39 Egfr Non- 88.8 >60 Egfr 107.4 >60 5 Alkaline Phosphatase 60 U/L Normal 34-104 Laboratory test finding 06/27/2019 [facility] Lactic Acid 2.4 mmol/L Critical high 0.5-2.0 6 Comp Metabolic Panel 06/27/2019 [facility] Sodium 136 mmol/L Normal 135-145 Potassium 4.0 mmol/L Normal 3.5-5.0 Chloride 106 mmol/L Normal 101-111 Co2 Carbon Dioxide 23 mmol/L Normal 22-32 Anion Gap 7 mmol/L Normal 2-11 Glucose 125 mg/dL High 70-100 Blood Urea Nitrogen 10 mg/dL Normal 6-24 Creatinine 0.69 mg/dL Normal 0.51-0.95 BUN/Creatinine Ratio 14.5 Normal 8-20 Calcium 9.3 mg/dL Normal 8.6-10.3 Total Protein 7.1 g/dL Normal 6.4-8.9 Albumin 4.3 g/dL Normal 3.2-5.2 Globulin 2.8 g/dL Normal 2-4 Albumin/Globulin Ratio 1.5 Normal 1-3 Total Bilirubin 0.90 mg/dL Normal 0.2-1.0 Alkaline Phosphatase 60 U/L Normal 34-104 Alt 12 U/L Normal 7-52 Ast 16 U/L Normal 13-39 Egfr Non- 94.7 >60 Egfr 114.6 >60 7 Laboratory test finding 06/27/2019 [facility] Creatine Kinase(CK) 188 U/L Normal 10-223 C Reactive Protein 1.88 mg/L Normal <8.01 HCG < 0.60 mIU/mL 8 CBC Auto Diff 06/27/2019 [facility] White Blood Count 3.9 10^3/uL Normal 3.5- 10.8 Red Blood Count 5.17 10^6/uL High 3.70-4.87 Hemoglobin 13.7 g/dL Normal 12.0-16.0 Hematocrit 41 % Normal 35-47 Mean Corpuscular Volume 80 fL Normal 80-97 Mean Corpuscular Hemoglobin 26 pg Low 27-31 Mean Corpuscular HGB Conc 33 g/dL Normal 31-36 Red Cell Distribution Width 14 % Normal 10-15 Platelet Count 173 10^3/uL Normal 150-450 Mean Platelet Volume 9.3 fL Normal 7.4-10.4 Abs Neutrophils 2.4 10^3/uL Normal 1.5-7.7 Abs Lymphocytes 1.0 10^3/uL Normal 1.0-4.8 Abs Monocytes 0.3 10^3/uL Normal 0-0.8 Abs Eosinophils 0.1 10^3/uL Normal 0-0.6 Abs Basophils 0.1 10^3/uL Normal 0-0.2 Abs Nucleated RBC 0.0 10^3/uL Granulocyte % 62.3 % Lymphocyte % 26.0 % Monocyte % 8.6 % Eosinophil % 1.7 % Basophil % 1.4 % Nucleated Red Blood Cells % 0.0 Laboratory test finding 06/27/2019 [facility] Erythrocyte Sed Rate 2 mm/Hr Normal 0-19 1 Because ethnic data is not always readily available, this report includes an eGFR for both -Americans and non- Americans. The National Kidney Disease Education Program (NKDEP) does not endorse the use of the MDRD equation for patients that are not between the ages of 18 and 70, are , have extremes of body size, muscle mass, or nutritional status, or are non- or non-. According to the National Kidney Foundation, irrespective of diagnosis, the stage of the disease is based on the level of kidney function: Stage Description GFR(mL/min/1.73 m(2)) 1 Kidney damage with normal or decreased GFR 90 2 Kidney damage with mild decrease in GFR 60-89 3 Moderate decrease in GFR 30-59 4 Severe decrease in GFR 15-29 5 Kidney failure <15 (or dialysis) 2 <5.0 Negative 5.0 - 25.0 Indeterminate (Repeat testing recommended after 72 hours) >25.0 Positive Perimenopausal women can display HCG levels of up to 20 mIU/mL 3 Standard intensity warfarin therapeutic range: 2.0-3.0 High intensity warfarin therapeutic range: 2.5-3.5 4 Critical Result LACT:2.1 Called to [id number] at: 10:26:42 by:[id number] Read back by:[email or web address] [facility] Severe Sepsis and Septic Shock Management Bundle Measure requires all lactic acids initially measuring >2.0 mmol/L be repeated. 5 Because ethnic data is not always readily available, this report includes an eGFR for both -Americans and non- Americans. The National Kidney Disease Education Program (NKDEP) does not endorse the use of the MDRD equation for patients that are not between the ages of 18 and 70, are , have extremes of body size, muscle mass, or nutritional status, or are non- or non-. According to the National Kidney Foundation, irrespective of diagnosis, the stage of the disease is based on the level of kidney function: Stage Description GFR(mL/min/1.73 m(2)) 1 Kidney damage with normal or decreased GFR 90 2 Kidney damage with mild decrease in GFR 60-89 3 Moderate decrease in GFR 30-59 4 Severe decrease in GFR 15-29 5 Kidney failure <15 (or dialysis) 6 Critical Result LACT:2.4 Called to [id number] at: 12:52:30 by:[id number] Read back by:[id number] [facility] Severe Sepsis and Septic Shock Management Bundle Measure requires all lactic acids initially measuring >2.0 mmol/L be repeated. 7 Because ethnic data is not always readily available, this report includes an eGFR for both -Americans and non- Americans. The National Kidney Disease Education Program (NKDEP) does not endorse the use of the MDRD equation for patients that are not between the ages of 18 and 70, are , have extremes of body size, muscle mass, or nutritional status, or are non- or non-. According to the National Kidney Foundation, irrespective of diagnosis, the stage of the disease is based on the level of kidney function: Stage Description GFR(mL/min/1.73 m(2)) 1 Kidney damage with normal or decreased GFR 90 2 Kidney damage with mild decrease in GFR 60-89 3 Moderate decrease in GFR 30-59 4 Severe decrease in GFR 15-29 5 Kidney failure <15 (or dialysis) 8 <5.0 Negative 5.0 - 25.0 Indeterminate (Repeat testing recommended after 72 hours) >25.0 Positive Perimenopausal women can display HCG levels of up to 20 mIU/mL Procedures Description No Information Available Medical Devices Description No Information Available Encounters Description No Information Available Assessments Date Code Description Provider 09/19/2019 R10.11 Right upper quadrant pain GLORIA Flowers 09/19/2019 M79.661 Pain in right lower leg GLORIA Flowers 09/19/2019 K29.60 Other gastritis without bleeding GLORIA Flowers Plan of Treatment Future Appointment(s):09/24/2019 4:30 pm - Eric Pope M.D. at [facility] [id number]/19/2019 - Haritha Noel PAR10.11 Right upper quadrant painComments: See General Surgery for consultation of removal of your gallbladder See Gastroenterology for furtherfollow up as well. Take Pantroprazole twice daily as directed- take hydroxychloroquine 4 hours apartfrom this medicine.M79.661 Pain in right lower legNew Xrays:Ultrasound Extremity W/Doppler RT, Ordered: Comments:Check ultrasound of the right lower leg to rule out blood clot Increase water, multivitamin, gentle stretching of your calves. ER for any worsening pain.K29.60 Other gastritis without bleedingComments:Avoid Ibuprofen Use Tylenol or Tramadol for the painAllComments:PCMHMedication Management Patient Understands medications he's taking? Yes Are there Barriers to Adherence? No Has the patient been asked about herbal supplements and therapies, and OTC meds? Yes Care Plan1. Patient has been queried about patient's goals/preferences and functional/lifestyle goals at relevant visits. Yes If relevant, describe: N/A2. Treatment goals as explained to the patient: above3. Are there barriers to meeting treatment goals? No If Yes , please describe:4. Self-Management goals as described to the patient: Yes As always, we strongly encourage a healthy diet and making physical activity a part of your every day life. If you have questions about how or where to start, please contact the office. Functional Status Description No Information Available Mental Status Description No Information Available Referrals Refer to Reason for Referral Status Appt Date Heath Duong consult and treat- er follow up jw Sent 09/02/2019 [address] [place] [address] [place] [address] [phone]
[2019-09-23 11:48] VITALS: BP 144/82
[2019-09-23] MEDS ORDERED: NS 0.9% 1000 ML** 1,000 ML IV ONE (12:10)
--- NOTE | 2019-09-23 12:14 | UC ---
Abdominal Pain Female HPI - HPI Summary HPI Summary: PATIENT HAS A COMPLICATED PAST RECENT MEDICAL HISTORY. HAD WHAT SOUNDS LIKE TUBAL TORSION AND HEMORRHAGIC CYST ON THE RIGHT SIDE BACK IN JUNE 2019. HAD LAPAROSCOPIC SURGERY AT THAT TIME TO REMOVE THE CYST. PATIENT'S PELVIC PAIN PERSISTED AND SHE WAS FOUND TO HAVE RECURRENT TORSION EARLIER THIS MONTH. PATIENT UNDERWENT LAPAROSCOPIC RIGHT SALPINGO-OOPHORECTOMY BY DR. TAO ON 09/02. PAIN PERSISTED AND STARTED MOVING TO THE LEFT AND UP INTO HER ABDOMEN AND CHEST. SHE STATES SHE HAS A LEFT SIDED HEMORRHAGIC CYST NOW. SHE WAS REFERRED TO GI AND HAD AN UPPER ENDOSCOPY YESTERDAY WHICH WAS NORMAL. PATIENT COMES IN TODAY STILL WITH OVERALL MALAISE AND NAUSEA. NO FEVER. - History of Current Complaint Chief Complaint: UCChestPain Stated Complaint: CHEST PAIN,NAUSEA Time Seen by Provider: 09/23/19 11:36 Hx Obtained From: Patient Onset/Duration: Gradual Onset, Lasting Weeks, Still Present Timing: Constant Severity Initially: Moderate Severity Currently: Moderate Pain Intensity: 7 Pain Scale Used: 0-10 Numeric Location: Diffuse Radiates: Yes Radiates to: Chest Character: Cramping Aggravating Factor(s): Nothing Alleviating Factor(s): Nothing Allergies/Adverse Reactions: Allergies Allergy/AdvReac Type Severity Reaction Status Date / Time Tree Nuts Allergy Severe Anaphylatic Verified 09/23/19 11:48 Shock peanut Allergy Nausea And Verified 09/23/19 11:48 Vomiting peanut oil Allergy Nausea And Verified 09/23/19 11:48 Vomiting Seasonal Allergies Allergy Sneezing Uncoded 09/23/19 11:48 PMH/Surg Hx/FS Hx/Imm Hx - Additional Past Medical History Additional PMH: OVARIAN TORSION S/P RIGHT SALPINGO-OOPHORECTOMY, AUTOIMMUNE D/O Other History Of: Negative For: Anticoagulant Therapy - Surgical History Surgical History: Yes Surgery Procedure, Year, and Place: Laparotomy - Ovarian torsion-06/2019. ovary removal - aug 28 2019 - Family History Known Family History: Positive: Other - allergies - Social History Alcohol Use: None Substance Use Type: None Smoking Status (MU): Never Smoked Tobacco - Immunization History Most Recent Influenza Vaccination: 06/29/19 Most Recent Pneumonia Vaccination: Never Review of Systems All Other Systems Reviewed And Are Negative: Yes Constitutional: Positive: Negative ENT: Positive: Negative Respiratory: Positive: Negative Cardiovascular: Positive: Chest Pain Gastrointestinal: Positive: Abdominal Pain, Nausea Genitourinary: Positive: Negative Physical Exam Triage Information Reviewed: Yes Appearance: Well-Nourished, Pain Distress - MODERATE, Other: - PT TEARFUL, ANXIOUS Vital Signs: Initial Vital Signs Temp 98.6 F 09/23/19 11:43 Pulse 87 09/23/19 11:43 Resp 20 09/23/19 11:43 BP 144/82 09/23/19 11:43 Pulse Ox 100 09/23/19 11:43 Vital Signs Reviewed: Yes Eyes: Positive: Conjunctiva Clear ENT: Positive: Hearing grossly normal Neck: Positive: Supple Respiratory: Positive: No respiratory distress, No accessory muscle use Cardiovascular: Positive: Pulses Normal Abdomen Description: Positive: Soft, Other: - DIFFUSELY TENDER. NO RIGIDITY OR REBOUND. Negative: CVA Tenderness (R), CVA Tenderness (L), Distended, Guarding Bowel Sounds: Positive: Present Musculoskeletal: Positive: No Edema Neurological: Positive: Alert Psychological: Positive: Age Appropriate Behavior Skin: Negative: Rashes Diagnostics - EKG Cardiac Rate: NL Cardiac Rhythm: Sinus: Normal Ectopy: None ST Segment: Normal Abd Pain Female Course/Dx - Course Course Of Treatment: PT WITH WORSENING LOWER ABDOMINAL PAIN NOW RADIATING UP INTO HER CHEST. H/O RECENT LAPAROSCOPIC RIGHT SALPINGO-OOPHORECTOMY ON 09/02/19. PT REQUIRES A HIGHER LEVEL OF SERVICE THAN WHAT IS AVAILABLE IN THE . [place] [facility] [place]. - Differential Dx/Diagnosis Provider Diagnosis: Diffuse abdominal pain - Physician Notification/Consults Discussed Care of Patient With: Fide Torres - [place] [facility] [place] Time Discussed With Above Provider: 12:15 Instructed by Provider To: MD Will See In ED Discharge ED - Sign-Out/Discharge Documenting (check all that apply): Patient Departure All imaging exams completed and their final reports reviewed: No Studies - Discharge Plan Condition: Stable Disposition: TRANS HIGHER LVL OF CARE FAC Referrals: Eric Pope MD [Primary Care Provider] - - Billing Disposition and Condition Condition: STABLE Disposition: Trans Higher Lvl of Care Fac
== END 2019-09-23 12:40 | disposition short-term general hospital (02) ==
LOC: UCEAST 11:29
DX: R10.9 Unspecified abdominal pain (principal); R07.9 Chest pain, unspecified; R11.0 Nausea; Z91.018 Allergy to other foods; Z91.09 Other allergy status, other than to drugs and biological substances
CPT/HCPCS: 93005; 99213; G0463

== ENCOUNTER 2019-09-23 12:55 | Emergency (ER) | payer BC ==
--- NOTE | 2019-09-23 13:04 | ED ---
Abdominal Pain/Female - HPI Summary HPI Summary: 38 year old F arriving via ambulance from [facility] with complains of worsening abdominal pressure since June 2019. Hx ovarian cyst. Hx ovarian torsion. Patient sees Dr. Duong. Patient was seen in the ED on 06/27 where she had Pelvis CT done which showed dermoid cyst. Patient had laparotomy done on 06/28/2019. Patient states that two weeks after that, she developed cramping and pressure in the right lower abdomen. Patient states she tried changing her diet but her symptoms persisted. Patient was seen in the ED on 09/01/2019. Patient had right saplingo oophorectomy done on 09/02/2019 after which the cramping and pressure in her abdomen did not improve and only continued to worsen. Patient followed up with Dr. Duong on 09/07/2019 and was referred to GI. Patient sees Dr. Wiley. Patient was seen in the ED on 2019 for same symptoms, had a gallbladder ultrasound done, and was referred to GI. Patient saw Dr. Duong on 09/21/2019 and had an ultrasound done which showed that she had left ovarian cyst. Patient had upper endoscopy yesterday which were normal. Patient complaining of nausea and decreased appetite x1 month. Patient reports right abdominal pressure radiating to left side of abdomen and to the chest which is new. Patient reports sharp pain in lower left back. Patient went to [facility] today and was referred to the ED. Symptoms rated 6/10 in severity. Symptoms aggravated by nothing. Symptoms alleviated by nothing. Medications reviewed. Allergies reviewed. - History of Current Complaint Stated Complaint: ABDOMINAL PAIN AND VOMITING PER EMS Hx Obtained From: Patient Onset/Duration: Lasting Weeks, Still Present Timing: Constant Severity Currently: Moderate Pain Intensity: 6 Pain Scale Used: 0-10 Numeric Location: Discrete At: RLQ Radiates: Yes Radiates to: Chest, Other - left side of abdomen Aggravating Factor(s): Nothing Alleviating Factor(s): Nothing Allergies/Adverse Reactions: Allergies Allergy/AdvReac Type Severity Reaction Status Date / Time Tree Nuts Allergy Severe Anaphylatic Verified 09/23/19 11:48 Shock peanut Allergy Nausea And Verified 09/23/19 11:48 Vomiting peanut oil Allergy Nausea And Verified 09/23/19 11:48 Vomiting Seasonal Allergies Allergy Sneezing Uncoded 09/23/19 11:48 Home Medications: Home Medications Multivitamins/Minerals TAB* [Theragran/minerals TAB*] 1 tab PO DAILY 09/23/19 [ History Confirmed 09/23/19] PMH/Surg Hx/FS Hx/Imm Hx Endocrine/Hematology History: Denies: Hx Anticoagulant Therapy, Hx Diabetes, Hx Thyroid Disease Cardiovascular History: Denies: Hx Hypertension, Hx Pacemaker/ICD, Other Cardiovascular Problems/ Disorders Respiratory History: Denies: Hx Asthma, Hx Chronic Obstructive Pulmonary Disease (COPD), Other Respiratory Problems/Disorders GI History: Denies: Hx Cirrhosis, Hx Crohn's Disease, Hx Diverticulosis, Hx Gall Bladder Disease, Hx Gastroesophageal Reflux Disease, Hx Gastrointestinal Bleed, Hx Hiatal Hernia, Hx Irritable Bowel, Hx Obstructive Bowel, Hx Ulcer, Hx Urosepsis , Other GI Disorders History: Reports: Other Problems/Disorders - Torsion of right ovary-07/14 , right ovarian cyst-pelvic pain Denies: Hx Acute Renal Failure, Hx Chronic Renal Failure, Hx Kidney Infection , Hx Kidney Stones, Hx Renal Disease Musculoskeletal History: Reports: Hx Bursitis - Tailbone-2018, Other Musculoskeletal History - Deratomyositis, 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 ovary removal - aug 28 2019 Hx Anesthesia Reactions: No Infectious Disease History: Denies: Hx Hepatitis, Hx Human Immunodeficiency Virus (HIV) - Family History Known Family History: Positive: Other - allergies - Social History Alcohol Use: None Hx Substance Use: No Substance Use Type: Reports: None Hx Tobacco Use: No Smoking Status (MU): Never Smoked Tobacco Review of Systems Positive: Abdominal Pain, Nausea, Other - decreased appetite Positive: other - sharp pain in lower left back All Other Systems Reviewed And Are Negative: Yes Physical Exam - Summary Physical Exam Summary: VITAL SIGNS: Reviewed. GENERAL: Patient is a well-developed and nourished female who is lying comfortable in the stretcher. Patient is not in any acute respiratory distress. HEAD AND FACE: Normocephalic and atraumatic. EYES: PERRLA, EOMI x 2, No injected conjunctiva. EARS: Hearing grossly intact. Ear canals and tympanic membranes are WNL. MOUTH: Oropharynx within normal limits. NECK: Supple, trachea is midline, no adenopathy, no JVD. CHEST: Symmetric, no tenderness at palpation. LUNGS: Clear to auscultation bilaterally. No wheezing or crackles. CVS: RRR, S1 and S2 present, no murmurs or gallops appreciated. ABDOMEN: Soft, diffuse abdominal tenderness. No signs of distention. Positive bowel sounds. No rebound, no guarding, and no masses palpated. No abdominal bruit or pulsations. EXTREMITIES: FROM in all major joints, no edema, no cyanosis or clubbing. NEURO: Alert and oriented x 3. No acute neurological deficits. Speech is normal. SKIN: Dry and warm. Triage Information Reviewed: Yes Vital Signs Reviewed: Yes Procedures - Sedation Patient Received Moderate/Deep Sedation with Procedure: No Diagnostics - Laboratory Result Diagrams: 09/23/19 13:50 09/23/19 13:50 Lab Statement: Any lab studies that have been ordered have been reviewed, and results considered in the medical decision making process. - CT Abd/Pel CT Interpretation Completed By: Radiologist Summary of CT Findings: AGAIN NOTED IS A TUBULAR STRUCTURE OF THE LEFT HEMIPELVIS CORRESPONDING TO FINDINGS ON ULTRASOUND DATED SEPTEMBER 01, 2019. THE DIFFERENTIAL INCLUDES HYDROSALPINX VERSUS PYOSALPINX/TUBO-OVARIAN ABSCESS, THOUGH THERE IS NO SIGNIFICANT INFLAMMATORY CHANGE IN THE PELVIC FAT. ED physician has reviewed this report. - EKG 1357 Cardiac Rate: NL - 72 BPM EKG Rhythm: Sinus Rhythm Summary of EKG Findings: Sinus rhythm [address] elevations. Normal axis. Similar to previous EKG done on 09/23/2019. ED physician has reviewed and interpreted this EKG. Re-Evaluation - Re-Evaluation First Eval Re-Evaluation Time: 17:37 Change: Improved Comment: discussed lab and imaging findings with patient. patient is pain free. she is agreeable to discharge Abdominal Pain Fem Course/Dx - Course Course Of Treatment: 38 year old F arriving via ambulance from [facility] with complains of worsening abdominal pressure since June 2019. Hx ovarian cyst. Hx ovarian torsion. Patient sees Dr. Duong. 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 Patient had laparotomy done on 06/28/2019. Patient states that two weeks after that, she developed cramping and pressure in the right lower abdomen. Patient states she tried changing her diet but her symptoms persisted. Patient was seen in the ED on 09/01/2019. Patient had right salpingo oophorectomy done on 09/02/2019 after which the cramping and pressure in her abdomen did not improve and only continued to worsen. Patient followed up with Dr. Duong on 09/07/2019 and was referred to GI. Patient sees Dr. Wiley. Patient was seen in the ED on 2019 for same symptoms, had a gallbladder ultrasound done, and was referred to GI. Patient saw Dr. Duong on 09/21/2019 and had an ultrasound done which showed that she had left ovarian cyst. Patient had upper endoscopy yesterday which were normal. Patient complaining of nausea and decreased appetite x1 month. Patient reports right abdominal pressure radiating to left side of abdomen and to the chest which is new. Patient reports sharp pain in lower left back. Patient went to [facility] today and was referred to the ED. Symptoms rated 6/10 in severity. Symptoms aggravated by nothing. Symptoms alleviated by nothing. Medications reviewed. Allergies reviewed. Blood work without any significant abnormality. Urinalysis is negative for UTI. Abdominal and pelvic CT IMPRESSION: AGAIN NOTED IS A TUBULAR STRUCTURE OF THE LEFT HEMIPELVIS CORRESPONDING TO FINDINGS ON ULTRASOUND DATED SEPTEMBER 01, 2019. THE DIFFERENTIAL INCLUDES HYDROSALPINX VERSUS PYOSALPINX/TUBO-OVARIAN ABSCESS, THOUGH THERE IS NO SIGNIFICANT INFLAMMATORY CHANGE IN THE. PELVIC FAT. RUQ U/ S 09/18/2019 IMPRESSION: No definite abnormality identified in the right upper quadrant. See above. remarked regarding the gallbladder. Abdominal and pelvic CT IMPRESSION: 1. NO SONOGRAPHIC FEATURES OF TORSION. PLEASE NOTE THAT PARTIAL OR INTERMITTENT TORSION MAY BE SONOGRAPHICALLY NORMAL. 2. THERE IS A TUBULAR HYPOECHOIC STRUCTURE ALONG THE RIGHT ADNEXA WITH CENTRAL ECHOGENICITY. THIS MAY REPRESENT AN EDEMATOUS FALLOPIAN TUBE WITH COMPLEX FLUID CENTRALLY. THE DIFFERENTIAL INCLUDES PYOSALPINX. 3. THERE IS AN ECHOGENIC CYSTIC LESION OF THE RIGHT OVARY MEASURING UP TO 2.7 CM. THE DIFFERENTIAL INCLUDES HEMORRHAGIC CYST. I discussed the case with Dr. Duong from [facility] and at this time he doesn t foresee any gynecological etiology causing the pain. He will refer the patient to the primary care physician. I discussed all the findings and test results with the patient. Patient was instructed to return to the emergency room immediately if any of the symptoms return worsens. Plan of care was discussed with the patient and she understands and agrees. All questions were answered at patient satisfaction. There were no further complaints or concerns. Lung exam before discharge: CTA B/L. Good air exchange. No wheezing or crackles heard. CVS: S1 and S2 present. No murmurs appreciated. Patient is alert and oriented x 3. Patient is hemodynamically stable. Patient will be discharged home with follow up PCP in the next 2-3 days - Diagnoses Differential Diagnosis: Positive: Appendicitis, Bowel Obstruction, Constipation , Diverticulitis, Gall Bladder Disease, Pancreatitis, Renal Colic Provider Diagnoses: Diffuse abdominal pain - Provider Notifications Discussed Care Of Patient With: Heath Duong Time Discussed With Above Provider: 16:40 Instructed by Provider To: Other - Dr. Duong [facility] states that there is no gynecological pathology at this point so he refers to primary care provider Discharge ED - Sign-Out/Discharge Documenting (check all that apply): Patient Departure - Discharge Plan Condition: Stable Disposition: HOME Patient Education Materials: Abdominal Pain (ED) Referrals: Eric Pope MD [Primary Care Provider] - 3 Days Additional Instructions: Follow up with your primary care provider in 3 days. Return to the Emergency Department for new or worsening symptoms. - Billing Disposition and Condition Condition: STABLE Disposition: Home - Attestation Statements Document Initiated by Chana: Yes Documenting Scribe: Johnna Lugo Provider For Whom Chana is Documenting (Include Credential): Isaac Ruiz MD Scribe Attestation: Johnna Bhakta, scribed for Isaac Ruiz MD on 09/23/19 at 1850. Scribe Documentation Reviewed: Yes Provider Attestation: The documentation as recorded by the Johnna merritt accurately reflects the service I personally performed and the decisions made by me, Isaac Ruiz MD Status of Scribe Document: Viewed
[2019-09-23] MEDS ORDERED: NS 0.9% 1000 ML** 1,000 ML IV ONE (13:05)
[2019-09-23 13:41] LABS: Urine Appearance Clear; Urine Bilirubin Negative (Negative); Urine Blood Negative (Negative); Urine Color Yellow; Urine Glucose Negative (Negative); Urine Ketones Negative (Negative); Urine Nitrite Negative (Negative); Urine Protein Negative (Negative); Urine Specific Gravity 1.009 (1.010-1.030); Urine Urobilinogen Negative (Negative)
[2019-09-23 14:02] LABS: ABS Lymphocytes 0.9 10^3/ul (1.0-4.8); ABS Monocytes 0.2 10^3/ul (0-0.8); ABS Neutrophils 4.3 10^3/ul (1.5-7.7); Eosinophil % 0.1 %; Hematocrit 41 % (35-47); Hemoglobin 13.8 g/dL (12.0-16.0); Lymphocyte % 16.2 %; Mean Corpuscular HGB Conc 34 g/dL (31-36); Mean Corpuscular Hemoglobin 27 pg (27-31); Mean Corpuscular Volume 81 fL (80-97); Mean Platelet Volume 9.5 fL (7.4-10.4); Platelet Count 200 10^3/uL (150-450); Red Blood Count 5.04 10^6 /uL (3.70-4.87); Red Cell Distribution Width 15 % (10-15); White Blood Count 5.4 10^3/uL (3.5-10.8)
[2019-09-23 14:26] LABS: HCG Pregnancy < 0.60 mIU/mL
[2019-09-23 14:27] LABS: ALT 10 U/L (7-52); AST 15 U/L (13-39); Albumin 4.6 g/dL (3.2-5.2); Albumin/Globulin Ratio 1.6 (1-3); Alkaline Phosphatase 74 U/L (34-104); Anion Gap 8 mmol/L (2-11); BUN/Creatinine Ratio 11.5 (8-20); Blood Urea Nitrogen 7 mg/dL (6-24); CO2 Carbon Dioxide 24 mmol/L (22-32); Calcium 9.6 mg/dL (8.6-10.3); Chloride 109 mmol/L (101-111); EGFR African American 132.1 (>60); EGFR Non-African American 109.2 (>60); Globulin 2.8 g/dL (2-4); Glucose 87 mg/dL (70-100); Potassium 3.8 mmol/L (3.5-5.0); Sodium 141 mmol/L (135-145); Total Protein 7.4 g/dL (6.4-8.9)
[2019-09-23] MEDS ORDERED: Ondansetron INJ* 2 MG/ML VIAL IV ONE (15:01)
[2019-09-23] MEDS ORDERED: Morphine 4 MG/ML VIAL (1 ml) 4 MG/ML VIAL IV ONE (15:01)
[2019-09-23] MEDS ORDERED: Iohexol 300* (CONTRAST) 10 ML SDV IV ONE (15:15)
[2019-09-23 18:29] VITALS: BP 100/66
== END 2019-09-23 18:29 | disposition home or self-care (01) ==
LOC: ED 12:55
DX: R10.84 Generalized abdominal pain (principal); Z90.721 Acquired absence of ovaries, unilateral
CPT/HCPCS: 36415; 74177; 80053; 81003; 83605; 83690; 84484; 84702; 85025; 86140; 93005; 96361; 96374; 96375; 99284; J2270; J2405; Q9967